=== PATIENT | female | born 1960 | race Hispanic/Latino ===

== ENCOUNTER 2017-05-29 19:50 | Emergency (ER) | payer BC ==
[2017-05-29 20:28] LABS: #Basophils 0.1 thou/uL (0.0-0.2); #Lymphocytes 0.9 thou/uL (1.20-3.40); #Monocytes 0.4 thou/uL (0.11-0.59); #Neutrophils 5.3 thou/uL (1.40-6.50); %Basophils 1.2 % (0.0-1.0); %Eosinophils 0.2 % (0.0-10.0); %Lymphocytes 13.5 % (21.0-51.0); %Monocytes 6.5 % (0.0-10.0); Hematocrit 38.5 % (36.0-47.0); Mean Platelet Volume 7.9 fL (7.4-10.4); Red Blood Cell (RBC) Count 4.72 mill/uL (4.20-5.40); White Blood Cell (WBC) Count 6.8 thou/uL (4.8-10.8)
[2017-05-29 20:39] LABS: Anion Gap 16 mmol/L (10-20); BUN (Urea Nitrogen) 16 mg/dL (9.8-20.1); Calc. Creatinine Clearance 0 mL/min (70-130); Calcium 8.8 mg/dL (7.8-10.44); Carbon Dioxide 21 mmol/L (22-29); Chloride 106 mmol/L (98-107); Estimated GFR-MDRD 75
[2017-05-29 20:43] LABS: Troponin I Less than 0.010 ng/mL (< 0.028)
--- NOTE | 2017-05-29 21:34 | RAD ---
UPRIGHT PORTABLE CHEST ONE VIEW 05/29/17 HISTORY: 56-year-old female with chest pain, primarily the left upper chest and left upper back. COMPARISON: 10/15/14. FINDINGS: Heart size is normal. The lungs are clear. No pneumonia, edema, or pleural effusion or other acute p rocess. IMPRESSION: No acute intrathoracic disease. Stable from prior study. POS: [facility]
--- NOTE | 2017-05-29 23:43 | CT ---
CHEST CT ANGIOGRAM ABDOMEN CT ANGIOGRAM Exams include 3D renderin05/29/17 HISTORY: 56-year-old female with left upper chest pain and left upper back pain. CT angiogram of the chest and CT angiogram of the abdomen are performed including 3D rendering. There are some atherosclerotic calcific changes of the thoracic and abdominal aorta. No evidence for a focal aneurysm or evidence for aortic dissection. No acute pulmonary parenchymal process. No pleu ral effusion or pericardial effusion. The central pulmonary arteries appear to be free of thrombus. There are several small fat containing anterior abdominal wall hernias noted above the level of the umbilical. In addition, there is a hernia at the level of the umbilicus containing a portion of the transverse colon without evidence for obstruction or incarceration. There is some calcified retroper itoneal lymph nodes but no evidence of lymphadenopathy. Disc osteophytosis changes are noted at L4-L 5 and L5-S1. IMPRESSION: Atherosclerosis of the thoracic and abdominal aorta without evidence of focal aneurysm or dissection . Several fat containing anterior abdominal wall hernias above the level of the umbilicus with an um bilical hernia containing portion of the transverse colon without evidence of obstruction or incarce ration or other acute process. Tiny right renal cyst. No other significant acute process. POS: [facility]
== END 2017-05-29 21:51 | disposition home or self-care (01) ==
LOC: SCSER 19:50
DX: R07.9 Chest pain, unspecified (principal); E11.9 Type 2 diabetes mellitus without complications; E78.5 Hyperlipidemia, unspecified; Z79.891 Long term (current) use of opiate analgesic; Z79.899 Other long term (current) drug therapy
CPT/HCPCS: 36415; 71010; 71275; 80048; 82553; 84484; 85025; 93005

== ENCOUNTER 2019-03-03 08:03 | Outpatient (CLI) | payer OTHER ==
--- NOTE | 2019-03-03 11:16 | CT ---
CT OF THE CHEST AND ABDOMEN AND PELVIS WITH IV CONTRAST: INDICATION: A 58-year-old female for followup chemotherapy for rectal cancers; status post colon resection, lino cystectomy, appendectomy, and hysterectomy. CONTRAST: 95 cc Isovue 370. COMPARISON: CTA aortic dissection protocol dated 05/29/2017 from [facility], PET CT evaluati on of 02/13/2014, and CT of the abdomen and pelvis dated 02/04/2014. FINDINGS: CHEST: No suspicious pulmonary nodule or pleural effusion is demonstrated. No enlarged lymph nodes are evident. There is scattered vascular calcification involving the thoraci c aorta. ABDOMEN: There is a new hypodense mass seen involving the central aspect of the liver measuring 5.2 x 2.4 cm c ausing intrahepatic biliary ductal dilatation suspicious for malignancy. There is an enlarged peripo rtal lymph node measuring 9 mm. Gallbladder is surgically absent. The pancreas and adrenal glands are normal appearing. Kidneys are normal-appearing. Kidneys are normal appearing. The spleen is normal appearing. There is a moderate amount of retained stool within the colon. Fat-containing anterior abdominal wall hernias in addition to a hernia containing the nonobstructive portion of the transverse colon is stable. Postsurgical change of a rectum resection and colorectal anastomosis is present. There is suspected scarring seen at the lower aspect of the pelvis. A small amount of presacral soft tissue thickening is present which may reflect sequelae of prior therapy. Bladder is unremarkable appearing. No free fluid or enlarged lymph nodes are evident. No acute osseous abnormality is demonstrated. IMPRESSION: 1. New hypodense mass seen within the central aspect of the liver causing intrahepatic biliary ducta l dilatation. Additionally, there are some peripheral hypodensities within segment 8 of the right he patic lobe which may reflect additional lesions. An MRI of the abdomen with and without contrast is recommended for additional characterization. Findings may reflect a primary hepatic malignancy such as cholangiocarcinoma versus hepatic metastatic disease. 2. Enlarged lymph node of the periportal region is suspicious for regional metastatic lymphadenopath y. 3. Postsurgical change of rectal resection and colorectal anastomosis. There is some mild soft tiss ue thickening involving the lower presacral soft tissue space. Comparisons to prior CT of the chest, abdomen, and pelvis may be helpful to document stability; however, this is most suspicious for an ar ea of scarring or fibrosis related to prior therapy. 4. Stable abdominal wall hernias. CODE T POS: [facility]
== END 2019-03-03 08:04 | disposition home or self-care (01) ==
LOC: CT 08:03
PROVIDERS: ATTEND Internal Medicine Medical Oncology
DX: C18.9 Malignant neoplasm of colon, unspecified (principal); C20 Malignant neoplasm of rectum; R94.5 Abnormal results of liver function studies; R97.0 Elevated carcinoembryonic antigen [CEA]; K76.89 Other specified diseases of liver; K83.8 Other specified diseases of biliary tract; R59.0 Localized enlarged lymph nodes; K43.9 Ventral hernia without obstruction or gangrene; K63.89 Other specified diseases of intestine; Z98.890 Other specified postprocedural states
CPT/HCPCS: 71260; 74177

== ENCOUNTER 2019-03-07 08:44 | Outpatient (CLI) | payer OTHER ==
--- NOTE | 2019-03-07 12:14 | PET ---
PET CT: HISTORY: 58-year-old female with rectal cancer. Status post surgery and chemo/radiation therapy in [id number]. Exam requested for restaging. TECHNIQUE: PET scanning with CT attenuation correction performed from the base of the brain through the proximal thighs following the intravenous administration of 13 mCi [id number] in the right antecubital fossa. COMPARISON: None. CORRELATION: CT chest/abdomen/pelvis dated 03/03/19. FINDINGS: There are multiple hypermetabolic foci in the liver with SUVs of 5.4 in the dome of the right lobe, 1 0.6 in the central aspect of the liver, and 4.8 and 6.2 in the left liver lobe lesions. No yuriy hypermetabolism is seen in the neck, chest, axilla, abdomen, or pelvis. No hypermetabolic pu lmonary nodules, adrenal, or skeletal lesions are seen. There is increased uptake in the region of the rectum with a SUV of 4.9 and a focus of increased upta ke in the cecum with a SUV of 7.3. There is physiologic activity in the GI and tracts, and the visualized portions of the brain. The CT scan used for attenuation correction demonstrates no evidence of pleural effusions or ascites. There is a bowel loop containing ventral hernia. IMPRESSION: 1. Hepatic metastases. 2. Hypermetabolic focus in the rectum and cecum should be evaluated with colonoscopy. POS: [facility]
== END 2019-03-07 08:45 | disposition home or self-care (01) ==
LOC: PET 08:44
PROVIDERS: ATTEND Internal Medicine Medical Oncology
DX: C20 Malignant neoplasm of rectum (principal); C78.7 Secondary malignant neoplasm of liver and intrahepatic bile duct
CPT/HCPCS: 78815; A9552

== ENCOUNTER 2019-03-07 10:55 | Day surgery (SDC) | payer OTHER ==
[2019-03-06 16:46] VITALS: BMI 29.6
[2019-03-07] MEDS ORDERED: Bupivacaine/Epinephrine 0.25% 30 ML VIAL ONE (13:19)
[2019-03-07] MEDS ORDERED: Lidocaine 2% PF 5 ML VIAL ONE (13:19)
[2019-03-07] MEDS ORDERED: Fentanyl 100 MCG/2 ML VIAL ONE (13:28)
[2019-03-07] MEDS ORDERED: Famotidine/PF 20 mg/2ml Vial ONE (13:28)
[2019-03-07] MEDS ORDERED: Propofol 500 MG/50 ML VIAL ONE (13:28)
[2019-03-07] MEDS ORDERED: Midazolam HCl 2 mg/2 ml Vial ONE (13:28)
[2019-03-07] MEDS ORDERED: PROPOFOL 40 ML ONE (13:28)
[2019-03-07] MEDS ORDERED: Dexamethasone 20 MG/5 ML VIAL ONE (14:20)
[2019-03-07] MEDS ORDERED: Ondansetron PF 4 MG/2 ML Vial ONE (14:20)
[2019-03-07] MEDS ORDERED: Metoclopramide HCl 10 MG/2 ML VIAL ONE (14:20)
[2019-03-07] MEDS ORDERED: Ketorolac Tromethamine 30 MG/ML VIAL ONE (14:20)
[2019-03-07] MEDS ORDERED: PHENYLEPHRINE-NS 100 MCG/ML 10 ML SYRINGE ONE (14:20)
[2019-03-07] MEDS ORDERED: PROPOFOL 200 MG/20 ML VIAL ONE ×2 (14:20)
[2019-03-07] MEDS ORDERED: ePHEDrine 50 MG/ML VIAL ONE (14:20)
[2019-03-07] MEDS ORDERED: Lidocaine 1% PF 5 ML VIAL ONE (14:20)
--- NOTE | 2019-03-07 15:51 | RAD ---
XR Chest 1 View Portable HISTORY: Mediport catheter placement history of rectal cancer COMPARISON: None. FINDINGS: Heart size is borderline for portable technique. A right-sided Mediport catheter is present , the catheter tip overlies the superior vena cava. There are no signs of pneumothorax. IMPRESSION: Placement of right-sided Mediport catheter. No signs of pneumothorax.
--- NOTE | 2019-03-08 08:18 | PDOC.OP ---
Operative Note - Operative Note Operative Note: PROCEDURE: Right/Left subclavian MediPort placement with fluoroscopic guidance DATE OF PROCEDURE: 03/07/2019 SURGEON: Scotty Neri M.D. PREOPERATIVE DIAGNOSIS: Rectal cancer metastatic to liver POSTOPERATIVE DIAGNOSIS: Rectal cancer metastatic to liver HISTORY: Patient has been diagnosed with metastatic rectal cancer. Chemotherapy has been recommended and a Mediport has been requested for this. OPERATIVE PROCEDURE IN DETAIL: After informed consent was obtained and appropriate preoperative antibiotics administered, the patient was taken to the operating room and placed in supine position and monitored anesthesia care was administered. The patient had requested that the same site be used for her new Mediport. Local anesthesia was infused to the skin and subcutaneous tissues overlying her old Mediport scar and the skin was incised. A subcutaneous pocket was created. Due to the location of the pocket was felt that an internal jugular Mediport with lie most naturally. Local anesthesia was infused the skin and subcutaneous tissues overlying the right internal jugular vein but on examination with sterile ultrasound the vein was too small to place a Mediport. The patient was then placed in Trendelenburg position and the subclavian vein accessed easily on the first attempt with excellent flow of dark venous non- pulsatile blood. A wire threaded easily and was confirmed to be in the superior vena cava by fluoroscopy. Mediport tubing was tunneled from the subcutaneous pocket to the right subclavian access site. The dilator and sheath were then placed over the wire and the dilator and wire removed leaving the sheath in place. The clamped MediPort tubing was tunneled through the sheath, which was then split and removed leaving the MediPort tubing in place. The tubing was adjusted until the tip was confirmed by fluoroscopy to be in the superior vena cava just above the atrium. The tubing was clamped at the skin level and cut and the tubing secured to the port, which was then placed in the subcutaneous pocket. The port was secured within the pocket with 3 Prolene sutures.. The port was aspirated with the Guzman needle and had excellent flow of dark venous non-pulsatile blood and easily flushed without resistance. The subcutaneous tissues were closed with a running Monocryl suture, following which the skin was closed with a running subcuticular Monocryl suture. Dermabond dressings were placed and the hub was again accessed through the skin and confirmed to easily aspirate and easily flush. The course of the catheter was confirmed by fluoroscopy to be smooth with the tip appropriately located in the superior vena cava. The patient was taken back to the day stay unit in good condition. Estimated blood loss was minimal. There were no complications. There were no specimens.
== END 2019-03-07 16:22 | disposition home or self-care (01) ==
LOC: SDC 10:55
PROVIDERS: ATTEND Surgery
PROC: 05H533Z Insertion of Infusion Device into Right Subclavian Vein, Percutaneous Approach (ICD-10-PCS; principal; 2019-03-07)
DX: C20 Malignant neoplasm of rectum (principal); C78.7 Secondary malignant neoplasm of liver and intrahepatic bile duct; I10 Essential (primary) hypertension; E11.9 Type 2 diabetes mellitus without complications; E78.5 Hyperlipidemia, unspecified; Z88.5 Allergy status to narcotic agent; Z88.6 Allergy status to analgesic agent; Z79.899 Other long term (current) drug therapy
CPT/HCPCS: 71045; C1788; J0690; J1100; J1642; J1885; J2001; J2250; J2405; J2704; J2765; J3010; J3490; S0028

== ENCOUNTER 2019-03-11 09:35 | Outpatient (CLI) | payer OTHER ==
--- NOTE | 2019-03-11 14:10 | NM ---
Whole body bone scan: 03/11/2019 COMPARISON: None HISTORY: Rectal cancer TECHNIQUE: Anterior and posterior whole-body imaging obtained following intravenous administration of 31.1 mCi technetium 99m labeled MDP FINDINGS: There is physiologic activity within the kidneys and the urinary bladder. No foci of abnormal radiotracer activity noted within the skull, ribs, spine, pelvis, or long bones. IMPRESSION: No scintigraphic evidence of osseous metastatic disease.
== END 2019-03-11 09:36 | disposition home or self-care (01) ==
LOC: NM 09:35
PROVIDERS: ATTEND Internal Medicine Medical Oncology
DX: C18.9 Malignant neoplasm of colon, unspecified (principal); M25.552 Pain in left hip
CPT/HCPCS: 78306; A9503

== ENCOUNTER 2019-04-07 09:04 | Day surgery (SDC) | payer OTHER ==
[2019-04-04 12:54] VITALS: BMI 29.2
--- NOTE | 2019-04-07 14:25 | OP ---
DATE OF PROCEDURE: 04/07/2019 PROCEDURE PERFORMED: Colonoscopy. PREOPERATIVE DIAGNOSIS: Colon cancer, now with abnormal PET scan showing possible uptake in the bowel and liver. PREOPERATIVE DIAGNOSIS: Colon cancer, now with abnormal PET scan showing possible uptake in the bowel and liver. DESCRIPTION OF PROCEDURE: Informed consent was obtained from the patient. She was sedated with total intravenous anesthesia. The rectal exam was performed and was normal. The preparation quality was excellent. The colonoscope was advanced to the terminal ileum without difficulty. The mucosa of the terminal ileum was normal. The colonic mucosa was normal throughout. There was an anastomosis in the distal rectum just 1 to 2 cm above the dentate line. This appeared open and healthy. IMPRESSION: 1. Anastomosis in the distal rectum, 1 to 2 cm above the dentate line. This is about 4 cm above the anal verge. 2. Otherwise normal colonoscopy to the terminal ileum with an excellent preparation. RECOMMENDATIONS: 1. Follow up with Dr. Hawkins. 2. Repeat colonoscopy in 5 years. Job ID: [id number]
== END 2019-04-07 14:05 | disposition home or self-care (01) ==
LOC: SDC 09:04
PROVIDERS: ATTEND Internal Medicine Gastroenterology
PROC: 0DJD8ZZ Inspection of Lower Intestinal Tract, Via Natural or Artificial Opening Endoscopic (ICD-10-PCS; principal; 2019-04-07)
DX: R93.3 Abnormal findings on diagnostic imaging of other parts of digestive tract (principal); K62.89 Other specified diseases of anus and rectum; G47.33 Obstructive sleep apnea (adult) (pediatric); I10 Essential (primary) hypertension; E11.9 Type 2 diabetes mellitus without complications; Z85.048 Personal history of other malignant neoplasm of rectum, rectosigmoid junction, and anus; Z88.5 Allergy status to narcotic agent; Z88.6 Allergy status to analgesic agent; Z79.899 Other long term (current) drug therapy
CPT/HCPCS: J1642

== ENCOUNTER 2019-04-09 11:46 | Day surgery (SDC) | payer OTHER ==
[~2019-04-09 11:46] MED LIST: Atropine Sulfate 0.25 MG in Sodium Chloride 0.9% 50 ML IVPB SCH; Dexamethasone 20 MG in Sodium Chloride 0.9% 50 ML IVPB SCH; Irinotecan 300 MG in Sodium Chloride 0.9% 500 ML IVPB SCH; Leucovorin Calcium 50 MG in Sodium Chloride 0.9% 500 ML IVPB SCH; Palonosetron HCl 0.25 MG in Sodium Chloride 0.9% 50 ML IVPB SCH
[2019-04-09] MEDS ORDERED: Sodium Chloride 0.9% 20 ML ONE (12:05)
[2019-04-09 13:18] VITALS: BP 138/68; TEMP 98.3
== END 2019-04-09 14:42 | disposition home or self-care (01) ==
LOC: ONC/OP 11:46
PROVIDERS: ATTEND Internal Medicine Medical Oncology
DX: Z51.11 Encounter for antineoplastic chemotherapy (principal); C20 Malignant neoplasm of rectum; Z88.5 Allergy status to narcotic agent; Z88.6 Allergy status to analgesic agent
CPT/HCPCS: 96367; 96375; 96413; J0461; J0640; J1100; J2469; J7050; J9206

== ENCOUNTER 2019-04-23 09:51 | Day surgery (SDC) | payer OTHER ==
[~2019-04-23 09:51] MED LIST changes: -Dexamethasone 20 MG in Sodium Chloride 0.9% 50 ML IVPB SCH; +Dexamethasone Sod Phosphate 20 MG in Sodium Chloride 0.9% 50 ML IVPB SCH
[2019-04-23] MEDS ORDERED: Sodium Chloride 0.9% 20 ML ONE (09:55)
[2019-04-23 11:02] VITALS: BP 131/66; TEMP 98.4
== END 2019-04-23 13:30 | disposition home or self-care (01) ==
LOC: ONC/OP 09:51
PROVIDERS: ATTEND Internal Medicine Medical Oncology
DX: Z51.11 Encounter for antineoplastic chemotherapy (principal); C20 Malignant neoplasm of rectum; Z88.5 Allergy status to narcotic agent; Z88.8 Allergy status to other drugs, medicaments and biological substances
CPT/HCPCS: 96367; 96375; 96413; 96417; J0461; J0640; J1100; J2469; J7050; J9206

== ENCOUNTER 2019-04-25 12:25 | Day surgery (SDC) | payer OTHER ==
[2019-04-25] MEDS ORDERED: PEGFILGRASTIM-JMDB 6 MG/0.6 ML SYRINGE SQ SCH (12:30)
[2019-04-25] MEDS ORDERED: Pegfilgrastim Onpro 6 MG/0.6 ML SQ SCH (13:00)
[2019-04-25 14:07] VITALS: BP 141/79; TEMP 98.7
== END 2019-04-25 13:16 | disposition home or self-care (01) ==
LOC: ONC/OP 12:25
PROVIDERS: ATTEND Internal Medicine Medical Oncology
DX: Z51.11 Encounter for antineoplastic chemotherapy (principal); C20 Malignant neoplasm of rectum; Z88.5 Allergy status to narcotic agent; Z88.8 Allergy status to other drugs, medicaments and biological substances
CPT/HCPCS: 96372

== ENCOUNTER 2019-05-20 10:53 | Day surgery (SDC) | payer OTHER ==
[~2019-05-20 10:53] MED LIST changes: +Bevacizumab 350 MG in Sodium Chloride 0.9% 86 ML IVPB SCH
[2019-05-20] MEDS ORDERED: Sodium Chloride 0.9% 20 ML ONE (10:58)
[2019-05-20 11:34] VITALS: BP 147/67; TEMP 98.3
== END 2019-05-20 15:44 | disposition home or self-care (01) ==
LOC: ONC/OP 10:53
PROVIDERS: ATTEND Internal Medicine Medical Oncology
DX: Z51.11 Encounter for antineoplastic chemotherapy (principal); C20 Malignant neoplasm of rectum; Z88.5 Allergy status to narcotic agent; Z88.8 Allergy status to other drugs, medicaments and biological substances
CPT/HCPCS: 96367; 96375; 96413; 96415; 96416; 96417; J0461; J0640; J1100; J2469; J3490; J7050; J9035; J9206

== ENCOUNTER 2019-05-23 11:03 | Day surgery (SDC) | payer OTHER ==
[~2019-05-23 11:03] MED LIST changes: -Atropine Sulfate 0.25 MG in Sodium Chloride 0.9% 50 ML IVPB SCH; -Bevacizumab 350 MG in Sodium Chloride 0.9% 86 ML IVPB SCH; -Dexamethasone Sod Phosphate 20 MG in Sodium Chloride 0.9% 50 ML IVPB SCH; -Irinotecan 300 MG in Sodium Chloride 0.9% 500 ML IVPB SCH; -Leucovorin Calcium 50 MG in Sodium Chloride 0.9% 500 ML IVPB SCH; +PEGFILGRASTIM-JMDB 6 MG/0.6 ML SYRINGE SQ SCH; -Palonosetron HCl 0.25 MG in Sodium Chloride 0.9% 50 ML IVPB SCH
[2019-05-23 11:29] VITALS: BP 128/69; TEMP 98.5
== END 2019-05-23 11:29 | disposition home or self-care (01) ==
LOC: ONC/OP 11:03
PROVIDERS: ATTEND Internal Medicine Medical Oncology
DX: Z51.11 Encounter for antineoplastic chemotherapy (principal); C20 Malignant neoplasm of rectum; Z88.5 Allergy status to narcotic agent; Z88.6 Allergy status to analgesic agent
CPT/HCPCS: 96401; Q5108

== ENCOUNTER 2019-06-03 10:48 | Day surgery (SDC) | payer OTHER ==
[~2019-06-03 10:48] MED LIST changes: +Atropine Sulfate 0.25 MG in Sodium Chloride 0.9% 50 ML IVPB SCH; +Bevacizumab 350 MG in Sodium Chloride 0.9% 86 ML IVPB SCH; +Dexamethasone Sod Phosphate 20 MG in Sodium Chloride 0.9% 50 ML IVPB SCH; +Irinotecan 300 MG in Sodium Chloride 0.9% 500 ML IVPB SCH; +Leucovorin Calcium 50 MG in Sodium Chloride 0.9% 500 ML IVPB SCH; -PEGFILGRASTIM-JMDB 6 MG/0.6 ML SYRINGE SQ SCH; +Palonosetron HCl 0.25 MG in Sodium Chloride 0.9% 50 ML IVPB SCH
[2019-06-03 11:11] VITALS: BP 167/75
[2019-06-03] MEDS ORDERED: Sodium Chloride 0.9% 20 ML ONE (11:30)
== END 2019-06-03 15:39 | disposition home or self-care (01) ==
LOC: ONC/OP 10:48
PROVIDERS: ATTEND Internal Medicine Medical Oncology
DX: Z51.11 Encounter for antineoplastic chemotherapy (principal); C20 Malignant neoplasm of rectum; Z88.5 Allergy status to narcotic agent; Z88.6 Allergy status to analgesic agent
CPT/HCPCS: 36415; 80053; 81001; 82248; 82378; 83615; 84100; 84550; 87077; 87086; 87186; 96367; 96375; 96413; 96415; 96416; 96417; J0461; J0640; J1100; J2469; J3490; J7050; J9035; J9206

== ENCOUNTER 2019-06-06 16:03 | Day surgery (SDC) | payer OTHER ==
[~2019-06-06 16:03] MED LIST changes: -Atropine Sulfate 0.25 MG in Sodium Chloride 0.9% 50 ML IVPB SCH; -Bevacizumab 350 MG in Sodium Chloride 0.9% 86 ML IVPB SCH; -Dexamethasone Sod Phosphate 20 MG in Sodium Chloride 0.9% 50 ML IVPB SCH; -Irinotecan 300 MG in Sodium Chloride 0.9% 500 ML IVPB SCH; -Leucovorin Calcium 50 MG in Sodium Chloride 0.9% 500 ML IVPB SCH; +PEGFILGRASTIM-JMDB 6 MG/0.6 ML SYRINGE SQ SCH; -Palonosetron HCl 0.25 MG in Sodium Chloride 0.9% 50 ML IVPB SCH
[2019-06-06 16:17] VITALS: BP 150/76; TEMP 98.3
== END 2019-06-06 16:17 | disposition home or self-care (01) ==
LOC: ONC/OP 16:03
PROVIDERS: ATTEND Internal Medicine Medical Oncology
DX: Z51.11 Encounter for antineoplastic chemotherapy (principal); C20 Malignant neoplasm of rectum; Z88.5 Allergy status to narcotic agent; Z88.8 Allergy status to other drugs, medicaments and biological substances
CPT/HCPCS: 96372; Q5108

== ENCOUNTER 2019-06-17 11:29 | Day surgery (SDC) | payer OTHER ==
[~2019-06-17 11:29] MED LIST changes: +Atropine Sulfate 0.25 MG in Sodium Chloride 0.9% 50 ML IVPB SCH; +Bevacizumab 350 MG in Sodium Chloride 0.9% 86 ML IVPB SCH; +Dexamethasone Sod Phosphate 20 MG in Sodium Chloride 0.9% 50 ML IVPB SCH; +Irinotecan 300 MG in Sodium Chloride 0.9% 500 ML IVPB SCH; +Leucovorin Calcium 50 MG in Sodium Chloride 0.9% 500 ML IVPB SCH; -PEGFILGRASTIM-JMDB 6 MG/0.6 ML SYRINGE SQ SCH; +Palonosetron HCl 0.25 MG in Sodium Chloride 0.9% 50 ML IVPB SCH
[2019-06-17] MEDS ORDERED: Sodium Chloride 0.9% 30 ML ONE (12:06)
[2019-06-17 12:40] VITALS: BP 131/63; TEMP 98.5
== END 2019-06-17 16:06 | disposition home or self-care (01) ==
LOC: ONC/OP 11:29
PROVIDERS: ATTEND Internal Medicine Medical Oncology
DX: Z51.11 Encounter for antineoplastic chemotherapy (principal); C20 Malignant neoplasm of rectum; Z88.5 Allergy status to narcotic agent; Z88.8 Allergy status to other drugs, medicaments and biological substances
CPT/HCPCS: 96367; 96375; 96413; 96415; 96416; 96417; J0461; J0640; J1100; J1642; J2469; J3490; J7050; J9035; J9206

== ENCOUNTER 2019-06-20 13:00 | Day surgery (SDC) | payer OTHER ==
[~2019-06-20 13:00] MED LIST changes: -Atropine Sulfate 0.25 MG in Sodium Chloride 0.9% 50 ML IVPB SCH; -Bevacizumab 350 MG in Sodium Chloride 0.9% 86 ML IVPB SCH; -Dexamethasone Sod Phosphate 20 MG in Sodium Chloride 0.9% 50 ML IVPB SCH; -Irinotecan 300 MG in Sodium Chloride 0.9% 500 ML IVPB SCH; -Leucovorin Calcium 50 MG in Sodium Chloride 0.9% 500 ML IVPB SCH; +PEGFILGRASTIM-JMDB 6 MG/0.6 ML SYRINGE SQ SCH; -Palonosetron HCl 0.25 MG in Sodium Chloride 0.9% 50 ML IVPB SCH
[2019-06-20 13:11] VITALS: BP 158/71; TEMP 98.3
== END 2019-06-20 13:20 | disposition home or self-care (01) ==
LOC: ONC/OP 13:00
PROVIDERS: ATTEND Internal Medicine Medical Oncology
DX: Z51.11 Encounter for antineoplastic chemotherapy (principal); C20 Malignant neoplasm of rectum; Z88.5 Allergy status to narcotic agent; Z88.8 Allergy status to other drugs, medicaments and biological substances
CPT/HCPCS: 96372; Q5108

== ENCOUNTER 2019-07-01 11:15 | Day surgery (SDC) | payer OTHER ==
[~2019-07-01 11:15] MED LIST changes: +Atropine Sulfate 0.25 MG in Sodium Chloride 0.9% 50 ML IVPB SCH; +Bevacizumab 350 MG in Sodium Chloride 0.9% 86 ML IVPB SCH; +Dexamethasone Sod Phosphate 20 MG in Sodium Chloride 0.9% 50 ML IVPB SCH; +Irinotecan 300 MG in Sodium Chloride 0.9% 500 ML IVPB SCH; +Leucovorin Calcium 50 MG in Sodium Chloride 0.9% 500 ML IVPB SCH; -PEGFILGRASTIM-JMDB 6 MG/0.6 ML SYRINGE SQ SCH; +Palonosetron HCl 0.25 MG in Sodium Chloride 0.9% 50 ML IVPB SCH
[2019-07-01 13:03] VITALS: BP 126/58; TEMP 97.7
[2019-07-01] MEDS ORDERED: Sodium Chloride 0.9% 20 ML ONE (14:04)
== END 2019-07-01 15:14 | disposition home or self-care (01) ==
LOC: ONC/OP 11:15
PROVIDERS: ATTEND Internal Medicine Medical Oncology
DX: Z51.11 Encounter for antineoplastic chemotherapy (principal); C20 Malignant neoplasm of rectum; Z88.6 Allergy status to analgesic agent; Z88.5 Allergy status to narcotic agent
CPT/HCPCS: 36415; 80053; 82248; 82378; 83615; 84100; 84550; 96367; 96375; 96413; 96415; 96416; 96417; J0461; J0640; J1100; J1642; J2469; J3490; J7050; J9035; J9206

== ENCOUNTER 2019-07-04 13:20 | Day surgery (SDC) | payer OTHER ==
[2019-07-04] MEDS ORDERED: PEGFILGRASTIM-JMDB 6 MG/0.6 ML SYRINGE ONE (13:25)
== END 2019-07-04 13:26 | disposition home or self-care (01) ==
LOC: ONC/OP 13:20
PROVIDERS: ATTEND Internal Medicine Medical Oncology
DX: Z51.11 Encounter for antineoplastic chemotherapy (principal); C20 Malignant neoplasm of rectum; Z88.5 Allergy status to narcotic agent; Z88.8 Allergy status to other drugs, medicaments and biological substances
CPT/HCPCS: 96372; Q5108

== ENCOUNTER 2019-07-14 07:28 | Outpatient (CLI) | payer OTHER ==
[2019-07-14] MEDS ORDERED: Iopamidol 370 76% 100 ML VIAL ONE (09:00)
--- NOTE | 2019-07-14 12:03 | CT ---
CT ABDOMEN WITH AND WITHOUT IV CONTRAST: Date: 07/14/19 HISTORY: Rectal cancer. Status post surgery and chemo/radiation therapy. COMPARISON: 03/03/19. FINDINGS: The lung bases are clear. There has been interval reduction in the size of the previously noted mass in the central aspect of t he liver, currently measuring 2.0 x 2.7 x 3.0 cm, and improvement in the associated biliary ductal di latation. No new liver masses are identified. The spleen, pancreas, and adrenal glands are normal. Sm all cysts in the kidneys are again seen. No hydronephrosis is noted on either side. No free air, free fluid, or lymphadenopathy is seen in the abdomen. The patient is post cholecystecto my. Fat-containing anterior abdominal wall hernia in addition to hernia containing nonobstructed port ion of transverse colon is stable. There are degenerative changes in the spine. No osteolytic or oste oblastic lesions are identified. IMPRESSION: Interval improvement with reduction in size of hepatic mass since 03/03/19. POS: [facility]
== END 2019-07-14 07:29 | disposition home or self-care (01) ==
LOC: SCSCT 07:28
PROVIDERS: ATTEND Internal Medicine Medical Oncology
DX: K76.9 Liver disease, unspecified (principal); C20 Malignant neoplasm of rectum
CPT/HCPCS: 74170; 82565; Q9967

== ENCOUNTER 2019-07-15 11:21 | Day surgery (SDC) | payer OTHER ==
[2019-07-15] MEDS ORDERED: Sodium Chloride 0.9% 20 ML ONE (11:26)
[2019-07-15 11:46] VITALS: BP 143/65; TEMP 98.2
== END 2019-07-15 15:02 | disposition home or self-care (01) ==
LOC: ONC/OP 11:21
PROVIDERS: ATTEND Internal Medicine Medical Oncology
DX: Z51.11 Encounter for antineoplastic chemotherapy (principal); C20 Malignant neoplasm of rectum; Z88.5 Allergy status to narcotic agent; Z88.6 Allergy status to analgesic agent
CPT/HCPCS: 96367; 96375; 96413; 96416; 96417; J0461; J0640; J1100; J2469; J3490; J7050; J9035; J9206

== ENCOUNTER 2019-07-18 14:43 | Day surgery (SDC) | payer OTHER ==
[~2019-07-18 14:43] MED LIST changes: -Atropine Sulfate 0.25 MG in Sodium Chloride 0.9% 50 ML IVPB SCH; -Bevacizumab 350 MG in Sodium Chloride 0.9% 86 ML IVPB SCH; -Dexamethasone Sod Phosphate 20 MG in Sodium Chloride 0.9% 50 ML IVPB SCH; -Irinotecan 300 MG in Sodium Chloride 0.9% 500 ML IVPB SCH; -Leucovorin Calcium 50 MG in Sodium Chloride 0.9% 500 ML IVPB SCH; +PEGFILGRASTIM-JMDB 6 MG/0.6 ML SYRINGE SQ SCH; -Palonosetron HCl 0.25 MG in Sodium Chloride 0.9% 50 ML IVPB SCH
[2019-07-18 14:55] VITALS: BP 148/72; TEMP 98.2
== END 2019-07-18 14:56 | disposition home or self-care (01) ==
LOC: ONC/OP 14:43
PROVIDERS: ATTEND Internal Medicine Medical Oncology
DX: C20 Malignant neoplasm of rectum (principal); Z88.5 Allergy status to narcotic agent; Z88.8 Allergy status to other drugs, medicaments and biological substances
CPT/HCPCS: 96372; Q5108

== ENCOUNTER → 2019-07-29 | Day surgery (SDC) | payer OTHER ==
[~2019-07-29] MED LIST changes: +Atropine Sulfate 0.25 MG in Sodium Chloride 0.9% 50 ML IVPB SCH; +Bevacizumab 350 MG in Sodium Chloride 0.9% 86 ML IVPB SCH; +Dexamethasone Sod Phosphate 20 MG in Sodium Chloride 0.9% 50 ML IVPB SCH; +Irinotecan 300 MG in Sodium Chloride 0.9% 500 ML IVPB SCH; +Leucovorin Calcium 50 MG in Sodium Chloride 0.9% 500 ML IVPB SCH; -PEGFILGRASTIM-JMDB 6 MG/0.6 ML SYRINGE SQ SCH; +Palonosetron HCl 0.25 MG in Sodium Chloride 0.9% 50 ML IVPB SCH
[2019-07-29 12:36] VITALS: BP 144/63; TEMP 98.4
== END ==
LOC: ONC/OP 10:40
PROVIDERS: ATTEND Internal Medicine Medical Oncology
DX: Z51.11 Encounter for antineoplastic chemotherapy (principal); C20 Malignant neoplasm of rectum; Z88.5 Allergy status to narcotic agent; Z88.8 Allergy status to other drugs, medicaments and biological substances
CPT/HCPCS: 36415; 80053; 82248; 82378; 83615; 84100; 84550; 96375; 96413; 96417; J0461; J0640; J1100; J2469; J3490; J7050; J9035; J9206

== ENCOUNTER 2019-08-01 14:36 | Day surgery (SDC) | payer OTHER ==
[~2019-08-01 14:36] MED LIST changes: -Atropine Sulfate 0.25 MG in Sodium Chloride 0.9% 50 ML IVPB SCH; -Bevacizumab 350 MG in Sodium Chloride 0.9% 86 ML IVPB SCH; -Dexamethasone Sod Phosphate 20 MG in Sodium Chloride 0.9% 50 ML IVPB SCH; -Irinotecan 300 MG in Sodium Chloride 0.9% 500 ML IVPB SCH; -Leucovorin Calcium 50 MG in Sodium Chloride 0.9% 500 ML IVPB SCH; +PEGFILGRASTIM-JMDB 6 MG/0.6 ML SYRINGE SQ SCH; -Palonosetron HCl 0.25 MG in Sodium Chloride 0.9% 50 ML IVPB SCH
[2019-08-01 16:23] VITALS: BP 140/68; TEMP 98.4
== END 2019-08-01 16:23 | disposition home or self-care (01) ==
LOC: ONC/OP 14:36
PROVIDERS: ATTEND Internal Medicine Hematology & Oncology
DX: C20 Malignant neoplasm of rectum (principal); Z88.5 Allergy status to narcotic agent; Z88.8 Allergy status to other drugs, medicaments and biological substances
CPT/HCPCS: 96372; Q5108

== ENCOUNTER 2019-08-12 11:12 | Day surgery (SDC) | payer OTHER ==
[~2019-08-12 11:12] MED LIST changes: +Atropine Sulfate 0.25 MG in Sodium Chloride 0.9% 50 ML IVPB SCH; +Bevacizumab 350 MG in Sodium Chloride 0.9% 86 ML IVPB SCH; +Dexamethasone Sod Phosphate 20 MG in Sodium Chloride 0.9% 50 ML IVPB SCH; +Irinotecan 300 MG in Sodium Chloride 0.9% 500 ML IVPB SCH; +Leucovorin Calcium 50 MG in Sodium Chloride 0.9% 500 ML IVPB SCH; -PEGFILGRASTIM-JMDB 6 MG/0.6 ML SYRINGE SQ SCH; +Palonosetron HCl 0.25 MG in Sodium Chloride 0.9% 50 ML IVPB SCH
[2019-08-12] MEDS ORDERED: Sodium Chloride 0.9% 20 ML ONE (11:22)
[2019-08-12 13:50] VITALS: BP 141/68; TEMP 98.7
== END 2019-08-12 15:36 | disposition home or self-care (01) ==
LOC: ONC/OP 11:12
PROVIDERS: ATTEND Internal Medicine Medical Oncology
DX: Z51.11 Encounter for antineoplastic chemotherapy (principal); C20 Malignant neoplasm of rectum; Z88.5 Allergy status to narcotic agent; Z88.6 Allergy status to analgesic agent
CPT/HCPCS: 96367; 96375; 96413; 96417; J0461; J0640; J1100; J2469; J3490; J7050; J9035; J9206

== ENCOUNTER 2019-08-15 14:12 | Day surgery (SDC) | payer OTHER ==
[2019-08-15] MEDS ORDERED: PEGFILGRASTIM-JMDB 6 MG/0.6 ML SYRINGE ONE (14:18)
[2019-08-15 14:21] VITALS: BP 126/63; TEMP 98.3
== END 2019-08-15 14:22 | disposition home or self-care (01) ==
LOC: ONC/OP 14:12
PROVIDERS: ATTEND Internal Medicine Medical Oncology
DX: C20 Malignant neoplasm of rectum (principal); Z88.5 Allergy status to narcotic agent; Z88.6 Allergy status to analgesic agent
CPT/HCPCS: 96372; Q5108

== ENCOUNTER → 2019-08-26 | Day surgery (SDC) | payer OTHER ==
[2019-08-26 17:19] VITALS: BP 109/63; TEMP 98.1
== END ==
LOC: ONC/OP 11:22
PROVIDERS: ATTEND Internal Medicine Medical Oncology
DX: Z51.11 Encounter for antineoplastic chemotherapy (principal); C20 Malignant neoplasm of rectum; Z88.5 Allergy status to narcotic agent; Z88.6 Allergy status to analgesic agent
CPT/HCPCS: 96366; 96375; 96413; 96416; 96417; J0461; J0640; J1100; J2469; J3490; J7050; J9035; J9206

== ENCOUNTER 2019-08-29 15:02 | Day surgery (SDC) | payer OTHER ==
[2019-08-29] MEDS ORDERED: PEGFILGRASTIM-JMDB 6 MG/0.6 ML SYRINGE ONE (15:13)
[2019-08-29] MEDS ORDERED: PEGFILGRASTIM-JMDB 6 MG/0.6 ML SYRINGE SQ SCH (15:30)
== END 2019-08-29 15:55 | disposition home or self-care (01) ==
LOC: ONC/OP 15:02
PROVIDERS: ATTEND Internal Medicine Medical Oncology
DX: Z51.11 Encounter for antineoplastic chemotherapy (principal); C20 Malignant neoplasm of rectum; Z88.5 Allergy status to narcotic agent; Z88.8 Allergy status to other drugs, medicaments and biological substances
CPT/HCPCS: 96372; J1642; Q5108

== ENCOUNTER 2019-09-09 11:58 | Day surgery (SDC) | payer OTHER ==
[2019-09-09] MEDS ORDERED: Sodium Chloride 0.9% 20 ML ONE (12:08)
[2019-09-09 14:50] VITALS: BP 139/64; TEMP 98.8
== END 2019-09-09 15:15 | disposition home or self-care (01) ==
LOC: ONC/OP 11:58
PROVIDERS: ATTEND Internal Medicine Medical Oncology
DX: Z51.11 Encounter for antineoplastic chemotherapy (principal); C20 Malignant neoplasm of rectum; Z88.5 Allergy status to narcotic agent; Z88.8 Allergy status to other drugs, medicaments and biological substances
CPT/HCPCS: 80053; 82248; 82378; 83615; 84100; 84550; 96367; 96375; 96413; 96415; 96417; J0461; J0640; J1100; J2469; J7050; J9206

== ENCOUNTER 2019-09-12 13:04 | Day surgery (SDC) | payer OTHER ==
[~2019-09-12 13:04] MED LIST changes: -Atropine Sulfate 0.25 MG in Sodium Chloride 0.9% 50 ML IVPB SCH; -Bevacizumab 350 MG in Sodium Chloride 0.9% 86 ML IVPB SCH; -Dexamethasone Sod Phosphate 20 MG in Sodium Chloride 0.9% 50 ML IVPB SCH; -Irinotecan 300 MG in Sodium Chloride 0.9% 500 ML IVPB SCH; -Leucovorin Calcium 50 MG in Sodium Chloride 0.9% 500 ML IVPB SCH; +PEGFILGRASTIM-JMDB 6 MG/0.6 ML SYRINGE SQ SCH; -Palonosetron HCl 0.25 MG in Sodium Chloride 0.9% 50 ML IVPB SCH
[2019-09-12 13:19] VITALS: BP 123/71; TEMP 98.3
== END 2019-09-12 13:19 | disposition home or self-care (01) ==
LOC: ONC/OP 13:04
PROVIDERS: ATTEND Internal Medicine Medical Oncology
DX: Z51.11 Encounter for antineoplastic chemotherapy (principal); C20 Malignant neoplasm of rectum; Z88.5 Allergy status to narcotic agent; Z88.6 Allergy status to analgesic agent
CPT/HCPCS: 96372; Q5108

== ENCOUNTER → 2019-09-23 | Day surgery (SDC) | payer OTHER ==
[~2019-09-23] MED LIST changes: +Atropine Sulfate 0.25 MG in Sodium Chloride 0.9% 50 ML IVPB SCH; +Bevacizumab 350 MG in Sodium Chloride 0.9% 86 ML IVPB SCH; +Dexamethasone Sod Phosphate 20 MG in Sodium Chloride 0.9% 50 ML IVPB SCH; +Irinotecan 300 MG in Sodium Chloride 0.9% 500 ML IVPB SCH; +Leucovorin Calcium 50 MG in Sodium Chloride 0.9% 500 ML IVPB SCH; -PEGFILGRASTIM-JMDB 6 MG/0.6 ML SYRINGE SQ SCH; +Palonosetron HCl 0.25 MG in Sodium Chloride 0.9% 50 ML IVPB SCH; +Sodium Chloride 0.9% 20 ML ONE
[2019-09-23 10:57] LABS: Hemoglobin 10.4 g/dL (12.0-16.0); Mean Corpuscular HGB CONC 31.6 g/dL (32.0-36.0); Mean Corpuscular Hemoglobin 27.6 pg (27.0-31.0); Mean Corpuscular Volume 87.4 fL (78.0-98.0); Platelet Count 253 thou/uL (130-400); RBC Distribution Width 16.3 % (11.5-14.5); Red Blood Cell (RBC) Count 3.77 mill/uL (4.20-5.40); White Blood Cell (WBC) Count 8.2 thou/uL (4.8-10.8)
[2019-09-23 11:17] LABS: Band 15 % (5-11); Lymphocytes 18 % (21-51); MDiff Complete? YES; Monocytes 8 % (0-10); Neutrophil 58 % (42-75); Platelet Morphology Comment Appears Adequate; Polychromasia SLIGHT = 2-3 cells (100X) (0-2/hpf); Promyelocytes 1 % (0-0)
[2019-09-23 12:20] LABS: Bacteria/HPF None Seen HPF (None Seen); Bilirubin Negative (Negative); Blood, Urine Negative (Negative); Clarity Turbid (Clear); Glucose, Urine (Dipstick) Normal (Negative); Leukocyte 250 Leu/uL (Negative); Nitrite Negative (Negative); Protein, Urine (Dipstick) 30 mg/dL (Neg-Trace); RBC/HPF 0-3 HPF (0-3); Urobilinogen 6 mg/dL (Less than 2); WBC/HPF 21-50 HPF (0-3)
--- NOTE | 2019-09-23 12:20 | RAD ---
EXAM: Chest Two Views 09/23/2019 12:17 PM HISTORY: Fever COMPARISON: Prior exam dated March 07, 2019 FINDINGS: Heart: Normal in size and contour. Pulmonary vessels: Normal. Costophrenic angles: Clear. Lungs: No acute airspace consolidation. Pneumothorax: None. Osseous structures:Intact. Additional findings: None. IMPRESSION: No significant acute intrathoracic disease.
[2019-09-23 12:24] LABS: Urine Culture Reflex No No
== END ==
LOC: ONC/OP 10:29
PROVIDERS: ATTEND Internal Medicine Medical Oncology
DX: Z51.11 Encounter for antineoplastic chemotherapy (principal); C20 Malignant neoplasm of rectum; Z88.5 Allergy status to narcotic agent; Z88.6 Allergy status to analgesic agent
CPT/HCPCS: 71046; 81001; 85025; J0461; J0640; J1100; J2469; J3490; J7050; J9035; J9206

== ENCOUNTER 2019-11-03 09:23 | Outpatient (CLI) | payer OTHER ==
[2019-11-03 10:07] LABS: Estimated GFR-MDRD - POC Greater than 90
--- NOTE | 2019-11-03 11:52 | CT ---
CT Chest W Con CT abdomen with contrast History: Metastatic disease Comparison: CT chest, abdomen, and pelvis February 2019. CT abdomen June 2019 Findings: No suspicious pulmonary nodule. No mediastinal adenopathy. No pericardial effusion. No axillary or internal mammary adenopathy. There is a mass within the left intrahepatic biliary duct causing expansion of the biliary system wit h left-sided intrahepatic biliary dilatation. There is also abnormal hypodense lesion within the caudate lobe extending into segment 4A. This has grown since the June 2019 examination. No new separate 7hepatic lesion is appreciated. There are 3 separate ventral hernia is. The craniad o ne is supraumbilical with a 1 cm transverse neck. The second is also supraumbilical with a omentum-containing hernia with a 2.1 cm neck. There is also a transverse colon containing periumbilic al hernia without evidence of obstruction. Small fat herniation through an old stoma interface. There is a diverticulum third portion duodenum. The pelvis is not interrogated on this examination. No retroperitoneal periaortic adenopathy. The aortic contour is nonaneurysmal. No suspicious osteolyt ic or osteoblastic lesions. No hydronephrosis. Bilateral gonadal vein phleboliths. Left renal cyst is similar. Impression: 1. Progressive disease involving the hepatic mass. Given the same plane of reference, the greatest tr ansverse dimension now measures approximately 4.8 cm, which is similar to the February 2019 exam, although has increased from the June 2019 exam which had measured approximately 3 cm 2. Mildly progressive left sided intrahepatic biliary dilatation. There is concern for a partially ob structing mass in the left intrahepatic bile duct. 3. The pelvis is not interrogated as the examination is only CT chest/abdomen.
== END 2019-11-03 09:24 | disposition home or self-care (01) ==
LOC: SCSCT 09:23
PROVIDERS: ATTEND Internal Medicine Medical Oncology
DX: C20 Malignant neoplasm of rectum (principal); C78.7 Secondary malignant neoplasm of liver and intrahepatic bile duct; R16.0 Hepatomegaly, not elsewhere classified; K83.8 Other specified diseases of biliary tract
CPT/HCPCS: 71260; 74160; 82565

== ENCOUNTER 2022-06-05 15:25 | Emergency (ER) | payer MEDICARE, OTHER ==
[2022-06-05] MEDS ORDERED: HYDROcodone/Acetaminophen 10/325 mg Tablet ONE (18:08)
[2022-06-05 18:32] LABS: Bilirubin Negative (Negative); Blood, Urine Negative (Negative); Clarity Clear (Clear); Glucose, Urine (Dipstick) Normal (Negative); Ketone, Urine Negative (Negative); Leukocyte 500 Leu/uL (Negative); Nitrite Negative (Negative); Protein, Urine (Dipstick) Negative (Neg-Trace); RBC/HPF 0-3 HPF (0-3); WBC/HPF Greater than 50 HPF (0-3); pH, Urine 6.5 (5.0-9.0)
[2022-06-05 18:33] LABS: Bacteria/HPF 1+ HPF (None Seen)
[2022-06-05] MEDS ORDERED: Diazepam 5 MG TAB ONE (18:47)
[2022-06-05] MEDS ORDERED: Cephalexin 250 MG CAP ONE (19:25)
== END 2022-06-05 19:30 | disposition home or self-care (01) ==
LOC: ERS 15:25
DX: N39.0 Urinary tract infection, site not specified (principal); M54.50 Low back pain, unspecified; E11.9 Type 2 diabetes mellitus without complications; E78.00 Pure hypercholesterolemia, unspecified; Z85.048 Personal history of other malignant neoplasm of rectum, rectosigmoid junction, and anus; Z85.05 Personal history of malignant neoplasm of liver; Z79.899 Other long term (current) drug therapy
CPT/HCPCS: 36415; 81003; 81015; 85652; 86140; 99283

== ENCOUNTER 2023-07-28 11:48 | Inpatient (IN) | payer MEDICARE ==
[~2023-07-28 11:48] MED LIST changes: -Atropine Sulfate 0.25 MG in Sodium Chloride 0.9% 50 ML IVPB SCH; -Bevacizumab 350 MG in Sodium Chloride 0.9% 86 ML IVPB SCH; -Dexamethasone Sod Phosphate 20 MG in Sodium Chloride 0.9% 50 ML IVPB SCH; +Iopamidol-370 76% 500 ML MDV (1 ML CHARGE) ONE; -Irinotecan 300 MG in Sodium Chloride 0.9% 500 ML IVPB SCH; -Leucovorin Calcium 50 MG in Sodium Chloride 0.9% 500 ML IVPB SCH; -Palonosetron HCl 0.25 MG in Sodium Chloride 0.9% 50 ML IVPB SCH; -Sodium Chloride 0.9% 20 ML ONE
[2023-07-28] MEDS ORDERED: Ondansetron PF 4 MG/2 ML Vial ONE (13:42)
[2023-07-28 13:52] LABS: Hematocrit 25.4 % (36.0-47.0); Hemoglobin 8.4 g/dL (12.0-16.0); Manual Diff?? YES; Mean Corpuscular HGB CONC 33.1 g/dL (32.0-36.0); Mean Corpuscular Hemoglobin 24.1 pg (27.0-31.0); Mean Corpuscular Volume 72.8 fl (78.0-98.0); Red Blood Cell (RBC) Count 3.49 mill/uL (4.20-5.40)
[2023-07-28 13:54] LABS: Platelet Count 33 10x3/uL (130-400)
[2023-07-28 13:55] LABS: Delete Auto Diff?? YES
[2023-07-28 14:17] LABS: Troponin I Less than 0.010 ng/mL (< 0.028)
[2023-07-28 14:25] LABS: Anisocytosis SLIGHT = 6-15 cells HPF (0-5); Band 23 % (5-11); CellaVision Operator ID LAB.KB; Hypochromia SLIGHT = 6-15 cells HPF (0-5); Large Platelets 3.8 % (0-5); Lymphocytes 14 % (21-51); Macrocytosis SLIGHT = 6-15 cells HPF (0-5); Metamyelocyte 1 % (0-0); Monocytes 21 % (0-10); Myelocyte 3 % (0-0); Neutrophil 35 % (42-75); Nucleated RBC (Manual Ct) 1 % (0); Ovalocytes SLIGHT = 2-5 cells HPF (0-1); Platelet Adequacy Comment Significant decrease; Polychromasia SLIGHT = 2-3 cells HPF (0-2); Schistocytes SLIGHT = 2-5 cells HPF (0-1); Smudge Cells 10.5 %; Target Cells MODERATE= 6-15 cells HPF (0-1); Total Cell Count 105
[2023-07-28 14:38] LABS: Bacteria/HPF None Seen HPF (None Seen); Bilirubin Negative (Negative); Blood, Urine Trace (Negative); CAUTI Indications for Culture Dysuria,urgency,freq; Clarity Clear (Clear); Glucose, Urine (Dipstick) Normal (Negative); Ketone, Urine 20 mg/dL (Negative); Leukocyte 25 Leu/uL (Negative); Nitrite Negative (Negative); Protein, Urine (Dipstick) 30 mg/dL (Neg-Trace); Specific Gravity, Urine 1.032 (1.002-1.036); Squamous Epithelial 0-3 HPF (0-3); Urobilinogen 3 mg/dL (Less than 2)
[2023-07-28 14:44] LABS: Urine Culture Reflex No No
[2023-07-28 15:03] LABS: SARS-CoV-2 NAA Rapid Test Not Detected (NotDetected)
[2023-07-28] MEDS ORDERED: Sodium Chloride 0.9% 100 ML ONE (15:42)
[2023-07-28] MEDS ORDERED: Cefepime 2 GM VIAL ONE (15:42)
[2023-07-28 18:30] LABS: Anion Gap 13 mmol/L (10-20); BUN (Urea Nitrogen) 13 mg/dL (9.8-20.1); Calc. Creatinine Clearance 0 mL/min (70-130); Carbon Dioxide 20 mmol/L (23-31); Chloride 107 mmol/L (98-107); Estimated GFR 97; Potassium 3.8 mmol/L (3.5-5.1); Sodium 136 mmol/L (136-145)
[2023-07-28 18:31] LABS: ALT (SGPT) 54 U/L (8-55); AST (SGOT) 48 U/L (5-34); Albumin 3.5 g/dL (3.4-4.8); Alkaline Phosphatase 260 U/L (40-110); Bilirubin, Total 1.7 mg/dL (0.2-1.2); Calcium 8.2 mg/dL (7.8-10.44); Globulin 3.4 g/dL (2.4-3.5); Glucose 124 mg/dL (80-115); Protein, Total 6.9 g/dL (5.8-8.1)
[2023-07-28 21:46] VITALS: BMI 25.4
[2023-07-28] MEDS ORDERED: Ondansetron ODT 4 MG TAB PO PRN (21:57)
[2023-07-28] MEDS ORDERED: Ondansetron PF 4 MG/2 ML Vial IVP PRN (21:57)
[2023-07-28] MEDS ORDERED: Dextrose 5%-Lactated Ringers 1,000 ML IV SCH (22:00)
[2023-07-29] MEDS: LevoFLOXacin 500 MG TAB PO SCH (05:41)
[2023-07-29 06:41] LABS: Hematocrit 19.2 % (36.0-47.0); Hemoglobin 6.2 g/dL (12.0-16.0); Manual Diff?? YES; Mean Corpuscular HGB CONC 32.3 g/dL (32.0-36.0); Mean Corpuscular Hemoglobin 23.8 pg (27.0-31.0); Mean Corpuscular Volume 73.8 fl (78.0-98.0); White Blood Cell (WBC) Count 1.8 10x3/uL (4.8-10.8)
[2023-07-29 06:48] LABS: Delete Auto Diff?? YES; Platelet Count 25 10x3/uL (130-400)
[2023-07-29 07:13] LABS: ALT (SGPT) 38 U/L (8-55); AST (SGOT) 33 U/L (5-34); Alkaline Phosphatase 208 U/L (40-110); Anion Gap 9 mmol/L (10-20); BUN (Urea Nitrogen) 11 mg/dL (9.8-20.1); Bilirubin, Total 1.3 mg/dL (0.2-1.2); Calc. Creatinine Clearance 83 mL/min (70-130); Calcium 8.1 mg/dL (7.8-10.44); Carbon Dioxide 23 mmol/L (23-31); Chloride 110 mmol/L (98-107); Estimated GFR 97; Globulin 2.8 g/dL (2.4-3.5); Glucose 127 mg/dL (80-115); Potassium 3.5 mmol/L (3.5-5.1); Protein, Total 5.8 g/dL (5.8-8.1); Sodium 138 mmol/L (136-145)
[2023-07-29] MEDS: Famotidine 20 MG TAB PO SCH ×2 (08:51→20:14)
[2023-07-29] MEDS: valACYclovir 500 MG TAB PO SCH (08:51)
[2023-07-29] MEDS: Voriconazole 50 MG TAB PO SCH ×2 (08:52→20:24)
[2023-07-29] MEDS ORDERED: Famotidine/PF 20 mg/2ml Vial SLOW IVP SCH (09:00)
[2023-07-29 09:11] LABS: Anisocytosis MARKED = >30 cells HPF (0-5); Band 5 % (5-11); CellaVision Operator ID LAB.CMB; Eosinophils 1 % (0-10); Hypochromia MODERATE=16-30 cells HPF (0-5); Large Platelets 3.8 % (0-5); Lymphocytes 37 % (21-51); Macrocytosis MARKED = >30 cells HPF (0-5); Metamyelocyte 1 % (0-0); Monocytes 15 % (0-10); Neutrophil 27 % (42-75); Other Cell Types 6.7; Ovalocytes SLIGHT = 2-5 cells HPF (0-1); Platelet Adequacy Comment Significant decrease; Polychromasia MARKED = >4 cells HPF (0-2); RBC Morphology 2; Reactive Lymphocytes 1 % (0-10); Target Cells SLIGHT = 2-5 cells HPF (0-1); Tear Drops SLIGHT = 2-5 cells HPF (0-1); Total Cell Count 105
[2023-07-29] MEDS ORDERED: Simethicone Chewable 80 MG TAB PO PRN (14:32)
[2023-07-29] MEDS: Acetaminophen 325 MG TAB PO PRN (20:27)
[2023-07-29] MEDS ORDERED: Simethicone Chewable 80 MG TAB PO SCH (21:30)
[2023-07-29] MEDS ORDERED: Saccharomyces boulardii 250 MG CAP PO SCH (21:30)
[2023-07-30] MEDS ORDERED: Gabapentin 100 MG CAP PO SCH ×2 (05:00→21:00)
[2023-07-30] MEDS: Acetaminophen 325 MG TAB PO PRN ×2 (05:05→23:26)
[2023-07-30] MEDS: LevoFLOXacin 500 MG TAB PO SCH (05:21)
[2023-07-30 06:55] LABS: Hematocrit 23.9 % (36.0-47.0); Hemoglobin 7.7 g/dL (12.0-16.0); Manual Diff?? YES; Mean Corpuscular HGB CONC 32.2 g/dL (32.0-36.0); Mean Corpuscular Hemoglobin 23.6 pg (27.0-31.0); Mean Corpuscular Volume 73.3 fl (78.0-98.0); RBC Distribution Width 36.4 % (11.5-14.5); Red Blood Cell (RBC) Count 3.26 mill/uL (4.20-5.40); White Blood Cell (WBC) Count 1.8 10x3/uL (4.8-10.8)
[2023-07-30 07:06] LABS: Delete Auto Diff?? YES; Platelet Count 21 10x3/uL (130-400)
[2023-07-30 07:16] LABS: Anion Gap 9 mmol/L (10-20); BUN (Urea Nitrogen) 8 mg/dL (9.8-20.1); Calc. Creatinine Clearance 86 mL/min (70-130); Carbon Dioxide 26 mmol/L (23-31); Chloride 105 mmol/L (98-107); Potassium 4.1 mmol/L (3.5-5.1); Sodium 136 mmol/L (136-145)
[2023-07-30 07:17] LABS: Estimated GFR 98; Glucose 91 mg/dL (80-115)
[2023-07-30 08:40] LABS: Lymphocytes 24 % (21-51); Neutrophil 32 % (42-75); Reactive Lymphocytes 6 % (0-10)
[2023-07-30 08:41] LABS: Monocytes 38 % (0-10)
[2023-07-30 08:52] LABS: Anisocytosis MODERATE=16-30 cells (100X) (0-5/hpf); Hypochromia MODERATE=16-30 cells (100X) (0-5/hpf); Microcytosis SLIGHT = 6-15 cells (100X) (0-5/hpf); Poikilocytosis MODERATE=16-30 cells (100X) (0-5/hpf); Schistocytes SLIGHT = 2-5 cells (100X) (0-1/hpf); Target Cells SLIGHT = 2-5 cells (100X) (0-1/hpf)
[2023-07-30 08:53] LABS: Platelet Adequacy Comment Appears Decreased
[2023-07-30] MEDS: Voriconazole 50 MG TAB PO SCH ×2 (08:59→20:29)
[2023-07-30] MEDS: valACYclovir 500 MG TAB PO SCH (08:59)
[2023-07-30] MEDS: Famotidine 20 MG TAB PO SCH ×2 (08:59→20:28)
[2023-07-30] MEDS ORDERED: PALONOSETRON HCL 0.05 MG/ML 5 ML VIAL IVP SCH (12:30)
[2023-07-30] MEDS: SODIUM CHLORIDE 0.9% IVPB SCH (14:31)
[2023-07-30] MEDS: DECITABINE IVPB SCH (14:31)
[2023-07-30] MEDS ORDERED: Gabapentin 300 MG CAP PO SCH (21:00)
[2023-07-30] MEDS ORDERED: Docusate 100 MG CAP PO SCH (22:15)
[2023-07-31] MEDS: Acetaminophen 325 MG TAB PO PRN ×2 (05:01→18:56)
[2023-07-31] MEDS: LevoFLOXacin 500 MG TAB PO SCH (05:02)
[2023-07-31 05:22] LABS: ALT (SGPT) 45 U/L (8-55); AST (SGOT) 47 U/L (5-34); Albumin 3.4 g/dL (3.4-4.8); Alkaline Phosphatase 228 U/L (40-110); Anion Gap 12 mmol/L (10-20); BUN (Urea Nitrogen) 12 mg/dL (9.8-20.1); Bilirubin, Total 1.5 mg/dL (0.2-1.2); Calc. Creatinine Clearance 84 mL/min (70-130); Calcium 8.6 mg/dL (7.8-10.44); Carbon Dioxide 24 mmol/L (23-31); Chloride 104 mmol/L (98-107); Estimated GFR 98; Globulin 3.5 g/dL (2.4-3.5); Glucose 157 mg/dL (80-115); Protein, Total 6.9 g/dL (5.8-8.1); Sodium 136 mmol/L (136-145); Uric Acid 5.1 mg/dL (2.6-6.0)
[2023-07-31 05:28] LABS: Hematocrit 24.6 % (36.0-47.0); Hemoglobin 8.2 g/dL (12.0-16.0); Manual Diff?? YES; Mean Corpuscular HGB CONC 33.3 g/dL (32.0-36.0); Mean Corpuscular Hemoglobin 23.9 pg (27.0-31.0); Mean Corpuscular Volume 71.7 fl (78.0-98.0); Red Blood Cell (RBC) Count 3.43 mill/uL (4.20-5.40); White Blood Cell (WBC) Count 1.2 10x3/uL (4.8-10.8)
[2023-07-31 05:33] LABS: Platelet Count 26 10x3/uL (130-400)
[2023-07-31 05:34] LABS: Delete Auto Diff?? YES
[2023-07-31 06:04] LABS: Anisocytosis SLIGHT = 6-15 cells HPF (0-5); Band 6 % (5-11); CellaVision Operator ID lab.abc; Hemoglobin C Crystals SLIGHT; Hypochromia SLIGHT = 6-15 cells HPF (0-5); Large Platelets 1.9 % (0-5); Lymphocytes 19 % (21-51); Metamyelocyte 6 % (0-0); Microcytosis SLIGHT = 6-15 cells HPF (0-5); Monocytes 16 % (0-10); Myelocyte 6 % (0-0); Neutrophil 47 % (42-75); Platelet Adequacy Comment Significant decrease; Smudge Cells 5.8 %; Target Cells SLIGHT = 2-5 cells HPF (0-1); Total Cell Count 103
[2023-07-31] MEDS: Voriconazole 50 MG TAB PO SCH ×2 (08:09→20:17)
[2023-07-31] MEDS: Famotidine 20 MG TAB PO SCH ×2 (08:09→20:16)
[2023-07-31] MEDS: valACYclovir 500 MG TAB PO SCH (08:10)
[2023-07-31] MEDS: VENETOCLAX 100 MG TAB PO SCH (13:34)
[2023-07-31] MEDS: DECITABINE IVPB SCH (15:08)
[2023-07-31] MEDS: SODIUM CHLORIDE 0.9% IVPB SCH (15:08)
[2023-07-31] MEDS ORDERED: Melatonin 3 MG TAB PO PRN (16:36)
[2023-07-31] MEDS: Gabapentin 100 MG CAP PO SCH (20:15)
[2023-08-01] MEDS: LevoFLOXacin 500 MG TAB PO SCH (05:01)
[2023-08-01 05:23] LABS: Hematocrit 24.3 % (36.0-47.0); Hemoglobin 7.9 g/dL (12.0-16.0); Manual Diff?? YES; Mean Corpuscular HGB CONC 32.5 g/dL (32.0-36.0); Mean Corpuscular Hemoglobin 23.4 pg (27.0-31.0); Mean Corpuscular Volume 71.9 fl (78.0-98.0); Red Blood Cell (RBC) Count 3.38 mill/uL (4.20-5.40); White Blood Cell (WBC) Count 1.6 10x3/uL (4.8-10.8)
[2023-08-01 05:47] LABS: ALT (SGPT) 40 U/L (8-55); AST (SGOT) 45 U/L (5-34); Albumin 3.4 g/dL (3.4-4.8); Alkaline Phosphatase 191 U/L (40-110); Anion Gap 11 mmol/L (10-20); BUN (Urea Nitrogen) 16 mg/dL (9.8-20.1); Bilirubin, Total 1.3 mg/dL (0.2-1.2); Calc. Creatinine Clearance 81 mL/min (70-130); Calcium 8.5 mg/dL (7.8-10.44); Carbon Dioxide 25 mmol/L (23-31); Chloride 105 mmol/L (98-107); Estimated GFR 94; Glucose 146 mg/dL (80-115); Potassium 3.8 mmol/L (3.5-5.1); Protein, Total 6.4 g/dL (5.8-8.1); Sodium 137 mmol/L (136-145)
[2023-08-01 06:52] LABS: Delete Auto Diff?? YES; Platelet Count 35 10x3/uL (130-400)
[2023-08-01 07:56] LABS: Anisocytosis MODERATE=16-30 cells HPF (0-5); Band 15 % (5-11); CellaVision Operator ID LAB.GE; Giant Platelets 0.9 % (0-5); Hypochromia MODERATE=16-30 cells HPF (0-5); Large Platelets 1.9 % (0-5); Lymphocytes 13 % (21-51); Metamyelocyte 2 % (0-0); Microcytosis SLIGHT = 6-15 cells HPF (0-5); Monocytes 13 % (0-10); Neutrophil 43 % (42-75); Nucleated RBC (Manual Ct) 1 % (0); Platelet Adequacy Comment Significant decrease; Platelet Clumps 0.9 % (0-5); Polychromasia MODERATE = 3-4 cells HPF (0-2); Reactive Lymphocytes 7 % (0-10); Schistocytes MODERATE= 6-15 cells HPF (0-1); Target Cells MODERATE= 6-15 cells HPF (0-1); Total Cell Count 107
[2023-08-01 08:57] LABS: Platelet Count 34 10x3/uL (130-400)
[2023-08-01] MEDS: Famotidine 20 MG TAB PO SCH ×2 (09:03→20:35)
[2023-08-01] MEDS: valACYclovir 500 MG TAB PO SCH (09:03)
[2023-08-01] MEDS: Voriconazole 50 MG TAB PO SCH ×2 (09:03→20:35)
[2023-08-01 09:14] LABS: INR-International Normal Ratio 1.2; Prothrombin Time 15.6 sec (12.0-14.7)
[2023-08-01 09:15] LABS: Fibrinogen 245 mg/dL (253-463); PTT 29.5 sec (22.9-36.1)
[2023-08-01 09:18] LABS: D-Dimer Test 0.79 *mcg/mL (0.27-0.43)
[2023-08-01] MEDS: Acetaminophen 325 MG TAB PO PRN ×2 (11:02→18:40)
[2023-08-01] MEDS: VENETOCLAX 100 MG TAB PO SCH (11:21)
[2023-08-01] MEDS: DECITABINE IVPB SCH (13:39)
[2023-08-01] MEDS: SODIUM CHLORIDE 0.9% IVPB SCH (13:39)
[2023-08-01] MEDS: Gabapentin 100 MG CAP PO SCH (20:34)
[2023-08-02] MEDS: LevoFLOXacin 500 MG TAB PO SCH (06:11)
[2023-08-02 06:31] LABS: Hematocrit 23.5 % (36.0-47.0); Hemoglobin 7.5 g/dL (12.0-16.0); Manual Diff?? YES; Mean Corpuscular HGB CONC 31.9 g/dL (32.0-36.0); Mean Corpuscular Hemoglobin 23.1 pg (27.0-31.0); Mean Corpuscular Volume 72.5 fl (78.0-98.0); Red Blood Cell (RBC) Count 3.24 mill/uL (4.20-5.40); White Blood Cell (WBC) Count 1.3 10x3/uL (4.8-10.8)
[2023-08-02 06:38] LABS: Delete Auto Diff?? YES; Platelet Count 21 10x3/uL (130-400)
[2023-08-02 07:02] LABS: ALT (SGPT) 40 U/L (8-55); AST (SGOT) 34 U/L (5-34); Albumin 3.1 g/dL (3.4-4.8); Alkaline Phosphatase 164 U/L (40-110); Anion Gap 9 mmol/L (10-20); BUN (Urea Nitrogen) 20 mg/dL (9.8-20.1); Calc. Creatinine Clearance 87 mL/min (70-130); Calcium 8.3 mg/dL (7.8-10.44); Carbon Dioxide 26 mmol/L (23-31); Chloride 105 mmol/L (98-107); Estimated GFR 98; Globulin 2.8 g/dL (2.4-3.5); Glucose 135 mg/dL (80-115); Potassium 3.8 mmol/L (3.5-5.1); Protein, Total 5.9 g/dL (5.8-8.1); Sodium 136 mmol/L (136-145)
[2023-08-02 07:51] LABS: Anisocytosis MODERATE=16-30 cells HPF (0-5); Band 10 % (5-11); CellaVision Operator ID LAB.GE; Giant Platelets 0.9 % (0-5); Hypochromia MODERATE=16-30 cells HPF (0-5); Large Platelets 2.8 % (0-5); Lymphocytes 14 % (21-51); Metamyelocyte 3 % (0-0); Monocytes 14 % (0-10); Myelocyte 4 % (0-0); Neutrophil 48 % (42-75); Nucleated RBC (Manual Ct) 3 % (0); Platelet Adequacy Comment Significant decrease; Polychromasia MODERATE = 3-4 cells HPF (0-2); Reactive Lymphocytes 7 % (0-10); Schistocytes MODERATE= 6-15 cells HPF (0-1); Target Cells SLIGHT = 2-5 cells HPF (0-1); Total Cell Count 107
[2023-08-02] MEDS: Acetaminophen 325 MG TAB PO PRN ×3 (09:03→23:02)
[2023-08-02] MEDS: VENETOCLAX 100 MG TAB PO SCH (09:04)
[2023-08-02] MEDS: Voriconazole 50 MG TAB PO SCH ×2 (09:05→20:41)
[2023-08-02] MEDS: Famotidine 20 MG TAB PO SCH ×2 (09:06→20:41)
[2023-08-02] MEDS: valACYclovir 500 MG TAB PO SCH (09:06)
[2023-08-02] MEDS: Dexamethasone Sod Phosphate 10 MG, Ondansetron 2MG/ML MDV 10 MG in Sodium Chloride 0.9%... IVPB SCH (12:51)
[2023-08-02] MEDS: SODIUM CHLORIDE 0.9% IVPB SCH (13:39)
[2023-08-02] MEDS: DECITABINE IVPB SCH (13:39)
[2023-08-02] MEDS: Gabapentin 100 MG CAP PO SCH (20:39)
[2023-08-02] MEDS: Temazepam 15 MG CAP PO PRN (23:02)
[2023-08-03 05:36] LABS: Hematocrit 23.2 % (36.0-47.0); Hemoglobin 7.6 g/dL (12.0-16.0); Manual Diff?? YES; Mean Corpuscular HGB CONC 32.8 g/dL (32.0-36.0); Mean Corpuscular Hemoglobin 23.5 pg (27.0-31.0); Mean Corpuscular Volume 71.6 fl (78.0-98.0); Red Blood Cell (RBC) Count 3.24 mill/uL (4.20-5.40); White Blood Cell (WBC) Count 1.4 10x3/uL (4.8-10.8)
[2023-08-03] MEDS: LevoFLOXacin 500 MG TAB PO SCH (05:48)
[2023-08-03 05:51] LABS: Platelet Count 19 10x3/uL (130-400)
[2023-08-03 05:52] LABS: Delete Auto Diff?? YES
[2023-08-03 06:00] LABS: ALT (SGPT) 38 U/L (8-55); AST (SGOT) 26 U/L (5-34); Albumin 3.2 g/dL (3.4-4.8); Alkaline Phosphatase 150 U/L (40-110); Anion Gap 11 mmol/L (10-20); BUN (Urea Nitrogen) 22 mg/dL (9.8-20.1); Calc. Creatinine Clearance 84 mL/min (70-130); Calcium 8.2 mg/dL (7.8-10.44); Carbon Dioxide 24 mmol/L (23-31); Chloride 104 mmol/L (98-107); Estimated GFR 97; Globulin 2.5 g/dL (2.4-3.5); Glucose 145 mg/dL (80-115); Protein, Total 5.7 g/dL (5.8-8.1); Sodium 135 mmol/L (136-145)
[2023-08-03 06:20] LABS: Band 18 % (5-11); CellaVision Operator ID LAB.CLH1; Hypochromia SLIGHT = 6-15 cells HPF (0-5); Lymphocytes 29 % (21-51); Metamyelocyte 3 % (0-0); Microcytosis SLIGHT = 6-15 cells HPF (0-5); Neutrophil 44 % (42-75); Nucleated RBC (Manual Ct) 6 % (0); Platelet Adequacy Comment Platelets Decreased; Polychromasia MODERATE = 3-4 cells HPF (0-2); Reactive Lymphocytes 3 % (0-10); Target Cells MODERATE= 6-15 cells HPF (0-1); Total Cell Count 34
[2023-08-03] MEDS: valACYclovir 500 MG TAB PO SCH (08:34)
[2023-08-03] MEDS: VENETOCLAX 100 MG TAB PO SCH (08:34)
[2023-08-03] MEDS: Famotidine 20 MG TAB PO SCH ×2 (08:34→20:51)
[2023-08-03] MEDS: Voriconazole 50 MG TAB PO SCH ×2 (08:34→20:53)
[2023-08-03] MEDS: Acetaminophen 325 MG TAB PO PRN (11:14)
[2023-08-03] MEDS: Dexamethasone Sod Phosphate 10 MG, Ondansetron 2MG/ML MDV 10 MG in Sodium Chloride 0.9%... IVPB SCH (14:00)
[2023-08-03] MEDS: DECITABINE IVPB SCH (14:34)
[2023-08-03] MEDS: SODIUM CHLORIDE 0.9% IVPB SCH (14:34)
[2023-08-03] MEDS: Gabapentin 100 MG CAP PO SCH (20:51)
[2023-08-03] MEDS: traMADol HCl 50 MG TAB PO PRN (23:26)
[2023-08-03] MEDS: Temazepam 15 MG CAP PO PRN (23:27)
[2023-08-04] MEDS: LevoFLOXacin 500 MG TAB PO SCH (06:21)
[2023-08-04 06:47] LABS: Hematocrit 23.8 % (36.0-47.0); Hemoglobin 7.8 g/dL (12.0-16.0); Manual Diff?? YES; Mean Corpuscular HGB CONC 32.8 g/dL (32.0-36.0); Mean Corpuscular Hemoglobin 23.3 pg (27.0-31.0); Red Blood Cell (RBC) Count 3.35 mill/uL (4.20-5.40); White Blood Cell (WBC) Count 2.2 10x3/uL (4.8-10.8)
[2023-08-04 06:49] LABS: Delete Auto Diff?? YES
[2023-08-04 07:13] LABS: ALT (SGPT) 39 U/L (8-55); AST (SGOT) 21 U/L (5-34); Albumin 3.3 g/dL (3.4-4.8); Alkaline Phosphatase 148 U/L (40-110); Anion Gap 10 mmol/L (10-20); BUN (Urea Nitrogen) 25 mg/dL (9.8-20.1); Bilirubin, Total 1.2 mg/dL (0.2-1.2); Calc. Creatinine Clearance 85 mL/min (70-130); Calcium 8.2 mg/dL (7.8-10.44); Carbon Dioxide 24 mmol/L (23-31); Chloride 102 mmol/L (98-107); Estimated GFR 97; Globulin 2.4 g/dL (2.4-3.5); Glucose 136 mg/dL (80-115); Potassium 4.2 mmol/L (3.5-5.1); Protein, Total 5.7 g/dL (5.8-8.1); Sodium 132 mmol/L (136-145)
[2023-08-04 07:33] LABS: Anisocytosis MARKED = >30 cells HPF (0-5); Band 4 % (5-11); Burr Cells SLIGHT = 2-5 cells HPF (0-1); CellaVision Operator ID LAB.NR; Hypochromia MARKED = >30 cells HPF (0-5); Large Platelets 4.9 % (0-5); Lymphocytes 7 % (21-51); Macrocytosis SLIGHT = 6-15 cells HPF (0-5); Metamyelocyte 3 % (0-0); Monocytes 15 % (0-10); Myelocyte 2 % (0-0); Neutrophil 69 % (42-75); Platelet Adequacy Comment Significant decrease; Schistocytes SLIGHT = 2-5 cells HPF (0-1); Target Cells MODERATE= 6-15 cells HPF (0-1); Total Cell Count 103
[2023-08-04 08:53] LABS: Platelet Count 20 10x3/uL (130-400)
[2023-08-04] MEDS: valACYclovir 500 MG TAB PO SCH (09:51)
[2023-08-04] MEDS: Famotidine 20 MG TAB PO SCH ×2 (09:52→20:12)
[2023-08-04] MEDS: Voriconazole 50 MG TAB PO SCH ×2 (09:52→20:12)
[2023-08-04] MEDS: VENETOCLAX 100 MG TAB PO SCH (11:26)
[2023-08-04] MEDS: traMADol HCl 50 MG TAB PO PRN ×2 (16:08→21:42)
[2023-08-04] MEDS: Gabapentin 100 MG CAP PO SCH (20:13)
[2023-08-04] MEDS: Temazepam 15 MG CAP PO PRN (21:42)
[2023-08-05] MEDS: LevoFLOXacin 500 MG TAB PO SCH (05:37)
[2023-08-05 06:32] LABS: Hematocrit 22.2 % (36.0-47.0); Hemoglobin 7.3 g/dL (12.0-16.0); Manual Diff?? YES; Mean Corpuscular HGB CONC 32.9 g/dL (32.0-36.0); Mean Corpuscular Hemoglobin 23.3 pg (27.0-31.0); Mean Corpuscular Volume 70.9 fl (78.0-98.0); Red Blood Cell (RBC) Count 3.13 mill/uL (4.20-5.40); White Blood Cell (WBC) Count 1.6 10x3/uL (4.8-10.8)
[2023-08-05 06:33] LABS: Platelet Count 18 10x3/uL (130-400)
[2023-08-05 06:34] LABS: Delete Auto Diff?? YES
[2023-08-05 06:54] LABS: ALT (SGPT) 38 U/L (8-55); AST (SGOT) 21 U/L (5-34); Albumin 2.9 g/dL (3.4-4.8); Alkaline Phosphatase 132 U/L (40-110); Anion Gap 8 mmol/L (10-20); BUN (Urea Nitrogen) 23 mg/dL (9.8-20.1); Bilirubin, Total 1.3 mg/dL (0.2-1.2); Calc. Creatinine Clearance 93 mL/min (70-130); Calcium 8.1 mg/dL (7.8-10.44); Carbon Dioxide 26 mmol/L (23-31); Chloride 102 mmol/L (98-107); Estimated GFR 100; Globulin 2.4 g/dL (2.4-3.5); Glucose 93 mg/dL (80-115); Potassium 4.4 mmol/L (3.5-5.1); Protein, Total 5.3 g/dL (5.8-8.1); Sodium 132 mmol/L (136-145)
[2023-08-05 07:02] LABS: Anisocytosis MODERATE=16-30 cells HPF (0-5); Band 2 % (5-11); Burr Cells SLIGHT = 2-5 cells HPF (0-1); CellaVision Operator ID LAB.NR; Hypochromia MARKED = >30 cells HPF (0-5); Large Platelets 2.8 % (0-5); Lymphocytes 12 % (21-51); Macrocytosis SLIGHT = 6-15 cells HPF (0-5); Monocytes 23 % (0-10); Neutrophil 63 % (42-75); Platelet Adequacy Comment Significant decrease; Schistocytes MODERATE= 6-15 cells HPF (0-1); Smudge Cells 5.6 %; Target Cells MODERATE= 6-15 cells HPF (0-1); Total Cell Count 108
[2023-08-05] MEDS: Famotidine 20 MG TAB PO SCH ×2 (08:30→21:10)
[2023-08-05] MEDS: Voriconazole 50 MG TAB PO SCH ×2 (08:30→21:10)
[2023-08-05] MEDS: valACYclovir 500 MG TAB PO SCH (08:30)
[2023-08-05] MEDS ORDERED: VENETOCLAX 100 MG TAB PO SCH (09:15)
[2023-08-05] MEDS: Gabapentin 100 MG CAP PO SCH (21:09)
[2023-08-05] MEDS: Temazepam 15 MG CAP PO PRN (21:10)
[2023-08-06] MEDS: LevoFLOXacin 500 MG TAB PO SCH (05:39)
[2023-08-06 05:53] LABS: Hematocrit 21.2 % (36.0-47.0); Manual Diff?? YES; Mean Corpuscular Hemoglobin 23.5 pg (27.0-31.0); Mean Corpuscular Volume 71.1 fl (78.0-98.0); Red Blood Cell (RBC) Count 2.98 mill/uL (4.20-5.40); White Blood Cell (WBC) Count 1.1 10x3/uL (4.8-10.8)
[2023-08-06 05:55] LABS: Delete Auto Diff?? YES; Platelet Count 17 10x3/uL (130-400)
[2023-08-06 06:15] LABS: ALT (SGPT) 46 U/L (8-55); AST (SGOT) 28 U/L (5-34); Albumin 2.8 g/dL (3.4-4.8); Alkaline Phosphatase 133 U/L (40-110); Anion Gap 11 mmol/L (10-20); BUN (Urea Nitrogen) 23 mg/dL (9.8-20.1); Bilirubin, Total 1.5 mg/dL (0.2-1.2); Calc. Creatinine Clearance 89 mL/min (70-130); Calcium 7.8 mg/dL (7.8-10.44); Carbon Dioxide 25 mmol/L (23-31); Chloride 102 mmol/L (98-107); Estimated GFR 99; Globulin 2.3 g/dL (2.4-3.5); Glucose 93 mg/dL (80-115); Potassium 4.3 mmol/L (3.5-5.1); Protein, Total 5.1 g/dL (5.8-8.1); Sodium 134 mmol/L (136-145)
[2023-08-06] MEDS ORDERED: VENETOCLAX 100 MG TAB PO SCH (09:00)
[2023-08-06] MEDS: valACYclovir 500 MG TAB PO SCH (09:02)
[2023-08-06] MEDS: Voriconazole 50 MG TAB PO SCH ×2 (09:02→20:10)
[2023-08-06] MEDS: Famotidine 20 MG TAB PO SCH ×2 (09:03→20:11)
[2023-08-06 10:43] LABS: Band 13 % (5-11); CellaVision Operator ID LAB.GE; Hypochromia MODERATE=16-30 cells HPF (0-5); Large Platelets 4.6 % (0-5); Lymphocytes 24 % (21-51); Metamyelocyte 3 % (0-0); Microcytosis MODERATE=15-30 cells HPF (0-5); Monocytes 15 % (0-10); Myelocyte 1 % (0-0); Neutrophil 41 % (42-75); Platelet Adequacy Comment Significant decrease; Polychromasia MODERATE = 3-4 cells HPF (0-2); Reactive Lymphocytes 1 % (0-10); Schistocytes SLIGHT = 2-5 cells HPF (0-1); Target Cells SLIGHT = 2-5 cells HPF (0-1); Total Cell Count 108
[2023-08-06] MEDS: VENETOCLAX 100 MG TAB PO SCH (14:40)
[2023-08-06] MEDS: Gabapentin 100 MG CAP PO SCH (20:11)
[2023-08-06] MEDS: Senokot S 8.6-50 MG TAB PO SCH (20:13)
[2023-08-06] MEDS: Temazepam 15 MG CAP PO PRN (20:13)
[2023-08-07 04:03] LABS: Hematocrit 24.6 % (36.0-47.0); Hemoglobin 8.3 g/dL (12.0-16.0); Mean Corpuscular HGB CONC 33.7 g/dL (32.0-36.0); Mean Corpuscular Hemoglobin 23.7 pg (27.0-31.0); Mean Corpuscular Volume 70.3 fl (78.0-98.0); RBC Distribution Width 32.9 % (11.5-14.5); White Blood Cell (WBC) Count 0.7 10x3/uL (4.8-10.8)
[2023-08-07 04:09] LABS: Platelet Count 22 10x3/uL (130-400)
[2023-08-07 04:11] LABS: Delete Auto Diff?? YES
[2023-08-07 04:24] LABS: Anion Gap 9 mmol/L (10-20); BUN (Urea Nitrogen) 19 mg/dL (9.8-20.1); Calc. Creatinine Clearance 91 mL/min (70-130); Calcium 7.9 mg/dL (7.8-10.44); Carbon Dioxide 24 mmol/L (23-31); Chloride 103 mmol/L (98-107); Estimated GFR 99; Glucose 107 mg/dL (80-115); Potassium 4.3 mmol/L (3.5-5.1); Sodium 132 mmol/L (136-145)
[2023-08-07] MEDS: LevoFLOXacin 500 MG TAB PO SCH (05:53)
[2023-08-07] MEDS: valACYclovir 500 MG TAB PO SCH (09:22)
[2023-08-07] MEDS: Famotidine 20 MG TAB PO SCH (09:22)
[2023-08-07] MEDS: Senokot S 8.6-50 MG TAB PO SCH (09:22)
[2023-08-07] MEDS: Voriconazole 50 MG TAB PO SCH (09:22)
[2023-08-07] MEDS: VENETOCLAX 100 MG TAB PO SCH (10:21)
[2023-08-07 12:31] VITALS: BP 109/66; TEMP 99
== END 2023-08-07 18:32 | disposition home or self-care (01) | DRG 389 ==
LOC: ERS 11:48 → T4-B 19:55 → OBSVTOIN 07-29 14:33 → MSONC 07-30 11:04
PROVIDERS: ADMIT Student in an Organized Health Care Education/Training Program; ATTEND Family Medicine
PROC: 30233N1 Transfusion of Nonautologous Red Blood Cells into Peripheral Vein, Percutaneous Approach (ICD-10-PCS; principal; 2023-07-29)
DX: K56.609 Unspecified intestinal obstruction, unspecified as to partial versus complete obstruction (principal); C20 Malignant neoplasm of rectum; D61.818 Other pancytopenia; K56.7 Ileus, unspecified; D46.9 Myelodysplastic syndrome, unspecified; D69.6 Thrombocytopenia, unspecified; D50.9 Iron deficiency anemia, unspecified; E11.9 Type 2 diabetes mellitus without complications; E80.6 Other disorders of bilirubin metabolism; E78.5 Hyperlipidemia, unspecified; I10 Essential (primary) hypertension; Z88.5 Allergy status to narcotic agent; Z88.8 Allergy status to other drugs, medicaments and biological substances; Z79.899 Other long term (current) drug therapy; Z85.05 Personal history of malignant neoplasm of liver; Z90.49 Acquired absence of other specified parts of digestive tract; Z90.710 Acquired absence of both cervix and uterus; Z83.3 Family history of diabetes mellitus; Z98.890 Other specified postprocedural states; Z85.048 Personal history of other malignant neoplasm of rectum, rectosigmoid junction, and anus; Z11.52 Encounter for screening for COVID-19
CPT/HCPCS: 36415; 36416; 36430; 71045; 74177; 80048; 80053; 81001; 83605; 83615; 83690; 84484; 84550; 85025; 85049; 85060; 85300; 85362; 85379; 85384; 85610; 85730; 86850; 86900; 86901; 87040; 87086; 93005; 96361; 96365; 96375; G0306; G0378; J0692; J0894; J1100; J1642; J2405; J2469; J3490; P9016; Q9967

== ENCOUNTER 2023-08-08 13:05 | Emergency (ER) | payer MEDICARE ==
[2023-08-08 14:55] LABS: #Monocytes 0.1 thou/uL (0.11-0.59); #Neutrophils 0.3 thou/uL (1.40-6.50); %Eosinophils 1.6 % (0.0-10.0); %Lymphocytes 28.1 % (21.0-51.0); %Monocytes 17.2 % (0.0-10.0); %Neutrophils 51.5 % (42.0-75.0); Hematocrit 26.2 % (36.0-47.0); Hemoglobin 8.7 g/dL (12.0-16.0); Mean Corpuscular HGB CONC 33.2 g/dL (32.0-36.0); Mean Corpuscular Hemoglobin 23.4 pg (27.0-31.0); Mean Corpuscular Volume 70.4 fl (78.0-98.0); RBC Distribution Width 33.2 % (11.5-14.5); Red Blood Cell (RBC) Count 3.72 mill/uL (4.20-5.40); White Blood Cell (WBC) Count 0.6 10x3/uL (4.8-10.8)
[2023-08-08 14:56] LABS: Platelet Count 10 10x3/uL (130-400)
[2023-08-08 14:57] LABS: Manual Diff?? YES
[2023-08-08 15:10] LABS: ALT (SGPT) 58 U/L (8-55); AST (SGOT) 41 U/L (5-34); Albumin 3.3 g/dL (3.4-4.8); Alkaline Phosphatase 185 U/L (40-110); Anion Gap 11 mmol/L (10-20); BUN (Urea Nitrogen) 25 mg/dL (9.8-20.1); Bilirubin, Total 1.6 mg/dL (0.2-1.2); Calc. Creatinine Clearance 0 mL/min (70-130); Carbon Dioxide 23 mmol/L (23-31); Chloride 102 mmol/L (98-107); Estimated GFR 95; Globulin 2.1 g/dL (2.4-3.5); Glucose 115 mg/dL (80-115); Potassium 4.6 mmol/L (3.5-5.1); Protein, Total 5.4 g/dL (5.8-8.1); Sodium 131 mmol/L (136-145)
[2023-08-08 15:13] LABS: Troponin I Less than 0.010 ng/mL (< 0.028)
[2023-08-08 15:22] LABS: Anisocytosis MARKED = >30 cells HPF (0-5); Burr Cells SLIGHT = 2-5 cells HPF (0-1); CellaVision Operator ID LAB.KB; Hypochromia SLIGHT = 6-15 cells HPF (0-5); Microcytosis SLIGHT = 6-15 cells HPF (0-5); Ovalocytes SLIGHT = 2-5 cells HPF (0-1); Platelet Adequacy Comment Significant decrease; Polychromasia SLIGHT = 2-3 cells HPF (0-2); Schistocytes SLIGHT = 2-5 cells HPF (0-1)
[2023-08-08 15:33] LABS: Band 6 % (5-11); Lymphocytes 32 % (21-51); Monocytes 17 % (0-10); Neutrophil 45 % (42-75); Nucleated RBC (Manual Ct) 1 % (0); Smudge Cells 8.9 %; Total Cell Count 101
[2023-08-08 15:38] LABS: Bacteria/HPF None Seen HPF (None Seen); Bilirubin Negative (Negative); Blood, Urine Negative (Negative); CAUTI Indications for Culture Immunosuppressed; Clarity Clear (Clear); Glucose, Urine (Dipstick) Normal (Negative); Ketone, Urine Negative (Negative); Leukocyte Negative Leu/uL (Negative); Nitrite Negative (Negative); Protein, Urine (Dipstick) 20 mg/dL (Neg-Trace); RBC/HPF 0-3 HPF (0-3); Specific Gravity, Urine 1.024 (1.002-1.036); Squamous Epithelial 0-3 HPF (0-3); Urobilinogen 6 mg/dL (Less than 2); WBC/HPF 0-3 HPF (0-3); pH, Urine 6.5 (5.0-9.0)
[2023-08-08 15:40] LABS: Urine Culture Reflex Yes Yes
== END 2023-08-08 21:42 | disposition home or self-care (01) ==
LOC: ERS 13:05
DX: R55 Syncope and collapse (principal); D69.6 Thrombocytopenia, unspecified; E11.9 Type 2 diabetes mellitus without complications
CPT/HCPCS: 36430; 70450; 71045; 80053; 81001; 83880; 84484; 85025; 86850; 86900; 86901; 87086; 93005; 96360; 96361; 99285; P9035; 36415

== ENCOUNTER 2024-06-23 02:07 | Inpatient (IN) | payer MEDICARE ==
[2024-06-23 03:40] LABS: BUN (Urea Nitrogen) 14 mg/dL (9.8-20.1); Carbon Dioxide 21 mmol/L (23-31); Chloride 99 mmol/L (98-107); Potassium 4.5 mmol/L (3.5-5.1); Sodium 129 mmol/L (136-145)
[2024-06-23 03:41] LABS: ALT (SGPT) 91 U/L (8-55); AST (SGOT) 118 U/L (5-34); Alkaline Phosphatase 629 U/L (40-110); Bilirubin, Total 3.6 mg/dL (0.2-1.2); Calc. Creatinine Clearance 0 mL/min (70-130); Calcium 8.2 mg/dL (7.6-10.4); Estimated GFR 101; Globulin 2.7 g/dL (2.4-3.5); Glucose 155 mg/dL (80-115); Protein, Total 5.7 g/dL (5.8-8.1)
[2024-06-23 03:42] LABS: Lipase 4 U/L (8-78)
[2024-06-23 03:43] LABS: Anion Gap 16 mmol/L (10-20)
[2024-06-23 04:21] LABS: Anisocytosis SLIGHT = 6-15 cells HPF (0-5); Band 9 % (5-11); Hemoglobin 10.8 g/dL (12.0-16.0); Large Platelets 5.9 % (0-5); Lymphocytes 20 % (21-51); Macrocytosis SLIGHT = 6-15 cells HPF (0-5); Mean Corpuscular HGB CONC 34.8 g/dL (32.0-36.0); Mean Corpuscular Hemoglobin 32.1 pg (27.0-31.0); Mean Corpuscular Volume 92.3 fL (78.0-98.0); Metamyelocyte 7 % (0-0); Monocytes 8 % (0-10); Myelocyte 2 % (0-0); Neutrophil 55 % (42-75); Ovalocytes SLIGHT = 2-5 cells HPF (0-1); Platelet Adequacy Comment Significant Decrease; Platelet Count 39 10x3/uL (130-400); Polychromasia SLIGHT = 2-3 cells HPF (0-2); RBC Distribution Width 18.7 % (11.5-14.5); Red Blood Cell (RBC) Count 3.36 mill/uL (4.20-5.40); Reflex for Review?? YES; Target Cells SLIGHT = 2-5 cells HPF (0-1); Tear Drops SLIGHT = 2-5 cells HPF (0-1); Toxic Granulation SLIGHT; Vacuoles SLIGHT
[2024-06-23 05:26] LABS: Bacteria/HPF None Seen HPF (None Seen); Bilirubin Negative (Negative); Blood, Urine Negative (Negative); CAUTI Indications for Culture Fever or rigors; Clarity Clear (Clear); Glucose, Urine (Dipstick) Normal (Negative); Ketone, Urine Negative (Negative); Leukocyte Negative Leu/uL (Negative); Nitrite Negative (Negative); Protein, Urine (Dipstick) Negative (Neg-Trace); RBC/HPF 0-3 HPF (0-3); Squamous Epithelial 0-3 HPF (0-3); WBC/HPF 0-3 HPF (0-3)
[2024-06-23 05:27] LABS: Specific Gravity, Urine 1.047 (1.002-1.036)
[2024-06-23 05:28] LABS: Urine Culture Reflex No No
[2024-06-23 08:24] VITALS: BMI 23.6
[2024-06-23] MEDS: Sodium Chloride 0.9% 1,000 ML IV SCH (08:50)
[2024-06-23] MEDS: Famotidine/PF 20 mg/2ml Vial SLOW IVP SCH (08:50)
[2024-06-23] MEDS ORDERED: VANCO IVPB PRN (08:59)
[2024-06-23] MEDS ORDERED: ABX IVPB PRN (08:59)
[2024-06-23] MEDS: Ondansetron PF 4 MG/2 ML Vial IVP PRN (09:02)
[2024-06-23] MEDS: Morphine 2 MG/ML VIAL SLOW IVP PRN (09:03)
[2024-06-23] MEDS ORDERED: Iopamidol 370 76% 100 ML VIAL ONE (09:37)
[2024-06-23] MEDS: Cefepime 2 GM in Sodium Chloride 0.9% 100 ML IVPB SCH (10:16)
[2024-06-23] MEDS: Vancomycin (BATCH) 1.5 GM in Premix 1 BAG IVPB SCH (10:17)
[2024-06-23] MEDS: Cefepime 2 GM VIAL ONE (11:12)
[2024-06-23] MEDS ORDERED: Gabapentin 100 MG CAP PO PRN (16:06)
[2024-06-23] MEDS ORDERED: traZODone HCl 50 MG TAB PO PRN (16:21)
[2024-06-23] MEDS: Vancomycin 1 GM in Premix 1 BAG IVPB SCH (21:42)
[2024-06-24 05:42] LABS: Vancomycin, Random 17.5 ug/mL (See Comment)
[2024-06-24 05:44] LABS: ALT (SGPT) 105 U/L (8-55); AST (SGOT) 136 U/L (5-34); Albumin 2.7 g/dL (3.4-4.8); Alkaline Phosphatase 683 U/L (40-110); Anion Gap 12 mmol/L (10-20); BUN (Urea Nitrogen) 14 mg/dL (9.8-20.1); Bilirubin, Total 6.9 mg/dL (0.2-1.2); Calc. Creatinine Clearance 103 mL/min (70-130); Calcium 8.2 mg/dL (7.8-10.44); Carbon Dioxide 20 mmol/L (23-31); Chloride 105 mmol/L (98-107); Estimated GFR 104; Glucose 83 mg/dL (80-115); Potassium 4.1 mmol/L (3.5-5.1); Protein, Total 4.7 g/dL (5.8-8.1); Sodium 133 mmol/L (136-145)
[2024-06-24 05:57] LABS: Hematocrit 29.3 % (36.0-47.0); Hemoglobin 9.8 g/dL (12.0-16.0); Mean Corpuscular HGB CONC 33.4 g/dL (32.0-36.0); Mean Corpuscular Volume 95.8 fL (78.0-98.0); Mean Platelet Volume 8.9 fL (7.4-10.4); Platelet Count 36 10x3/uL (130-400); RBC Distribution Width 19.3 % (11.5-14.5); Red Blood Cell (RBC) Count 3.06 mill/uL (4.20-5.40)
[2024-06-24 07:38] LABS: Band 15 % (5-11); Large Platelets 3.8 % (0-5); Lymphocytes 29 % (21-51); Monocytes 13 % (0-10); Neutrophil 41 % (42-75); Platelet Adequacy Comment Significant Decrease; RBC Morphology Within Normal Limits; Reactive Lymphocytes 1 % (0-10)
[2024-06-24 08:10] LABS: Reflex for Review?? NO
[2024-06-24] MEDS ORDERED: MD-Gastroview 120 ML BOT ONE (09:13)
[2024-06-24] MEDS: TBO-Filgrastim 300 MCG/0.5 ML VIAL SC SCH (09:28)
[2024-06-24 12:02] VITALS: BMI 23.6
[2024-06-24] MEDS: FLU (Fluarix Triv) TS24-25(6MOS UP)/PF 45 MCG/0.5 ML Syringe IM ONE (15:34)
[2024-06-25 06:24] LABS: Hematocrit 28.5 % (36.0-47.0); Hemoglobin 9.7 g/dL (12.0-16.0); Mean Corpuscular Hemoglobin 32.2 pg (27.0-31.0); Mean Corpuscular Volume 94.7 fL (78.0-98.0); Mean Platelet Volume 8.8 fL (7.4-10.4); Platelet Count 31 10x3/uL (130-400); RBC Distribution Width 19.9 % (11.5-14.5); Red Blood Cell (RBC) Count 3.01 mill/uL (4.20-5.40)
[2024-06-25 06:43] LABS: ALT (SGPT) 90 U/L (8-55); AST (SGOT) 88 U/L (5-34); Albumin 2.6 g/dL (3.4-4.8); Alkaline Phosphatase 663 U/L (40-110); Anion Gap 14 mmol/L (10-20); BUN (Urea Nitrogen) 14 mg/dL (9.8-20.1); Bilirubin, Total 7.9 mg/dL (0.2-1.2); Calc. Creatinine Clearance 105 mL/min (70-130); Carbon Dioxide 20 mmol/L (23-31); Chloride 106 mmol/L (98-107); Estimated GFR 105; Globulin 2.2 g/dL (2.4-3.5); Glucose 107 mg/dL (80-115); Potassium 3.3 mmol/L (3.5-5.1); Protein, Total 4.8 g/dL (5.8-8.1); Sodium 137 mmol/L (136-145)
[2024-06-25 07:41] LABS: Band 19 % (5-11); Large Platelets 0.9 % (0-5); Lymphocytes 28 % (21-51); Monocytes 16 % (0-10); Neutrophil 37 % (42-75); Platelet Adequacy Comment Significant Decrease; RBC Morphology Within Normal Limits
[2024-06-25] MEDS: Potassium Chloride 20 MEQ in Lactated Ringer's 1,000 ML IVPB SCH (12:25)
[2024-06-26 07:18] LABS: Vancomycin, Random 20.7 ug/mL (See Comment)
[2024-06-26 07:22] LABS: ALT (SGPT) 57 U/L (8-55); AST (SGOT) 38 U/L (5-34); Albumin 2.5 g/dL (3.4-4.8); Alkaline Phosphatase 490 U/L (40-110); Anion Gap 10 mmol/L (10-20); BUN (Urea Nitrogen) 14 mg/dL (9.8-20.1); Bilirubin, Total 3.3 mg/dL (0.2-1.2); Calc. Creatinine Clearance 109 mL/min (70-130); Calcium 7.7 mg/dL (7.8-10.44); Carbon Dioxide 23 mmol/L (23-31); Chloride 109 mmol/L (98-107); Estimated GFR 106; Globulin 1.8 g/dL (2.4-3.5); Glucose 87 mg/dL (80-115); Potassium 3.7 mmol/L (3.5-5.1); Protein, Total 4.3 g/dL (5.8-8.1); Sodium 138 mmol/L (136-145)
[2024-06-26 07:26] LABS: Hematocrit 25.7 % (36.0-47.0); Hemoglobin 8.5 g/dL (12.0-16.0); Mean Corpuscular HGB CONC 33.1 g/dL (32.0-36.0); Mean Corpuscular Hemoglobin 31.6 pg (27.0-31.0); Mean Corpuscular Volume 95.5 fL (78.0-98.0); Mean Platelet Volume 10.4 fL (7.4-10.4); Platelet Count 36 10x3/uL (130-400); RBC Distribution Width 20.1 % (11.5-14.5); Red Blood Cell (RBC) Count 2.69 mill/uL (4.20-5.40)
[2024-06-26 07:59] LABS: Anisocytosis SLIGHT = 6-15 cells HPF (0-5); Band 22 % (5-11); Dohle Bodies SLIGHT; Large Platelets 1.9 % (0-5); Lymphocytes 29 % (21-51); Monocytes 5 % (0-10); Neutrophil 43 % (42-75); Platelet Adequacy Comment Platelets Decreased; Polychromasia SLIGHT = 2-3 cells HPF (0-2); Reactive Lymphocytes 1 % (0-10)
[2024-06-26] MEDS: Potassium Chloride 20 MEQ TAB PO SCH (08:41)
[2024-06-26 14:05] VITALS: BP 135/76; TEMP 97.8
[2024-06-26] MEDS ORDERED: Potassium Chloride 20 MEQ TAB PO SCH (16:00)
== END 2024-06-26 16:15 | disposition home or self-care (01) | DRG 393 ==
LOC: ERS 02:07 → SURG A 08:01
PROVIDERS: ADMIT Student in an Organized Health Care Education/Training Program; ATTEND Internal Medicine
DX: K43.0 Incisional hernia with obstruction, without gangrene (principal); D61.810 Antineoplastic chemotherapy induced pancytopenia; E87.1 Hypo-osmolality and hyponatremia; C78.7 Secondary malignant neoplasm of liver and intrahepatic bile duct; D61.818 Other pancytopenia; D46.9 Myelodysplastic syndrome, unspecified; T45.1X5A Adverse effect of antineoplastic and immunosuppressive drugs, initial encounter; Z90.49 Acquired absence of other specified parts of digestive tract; Z90.710 Acquired absence of both cervix and uterus; D70.9 Neutropenia, unspecified
CPT/HCPCS: 36415; 43753; 71045; 74018; 74019; 74177; 74250; 80053; 80202; 81001; 83690; 85025; 85060; 96360; 96361; J0692; J1447; J1642; J2272; J2405; J3370; J3370-JW; J3480; J3490; J7030; J7120; Q9963; Q9967